=== PATIENT | male | born 1960 | race American Indian/Alaskan Native ===

== ENCOUNTER 2017-04-07 10:19 | Emergency (ER) | payer SELFPAY ==
[2017-04-07] MEDS ORDERED: Ketorolac 30 MG/ML SDV IVPUSH ONE (10:34)
[2017-04-07] MEDS ORDERED: LORazepam 2 MG/ML Syringe IVPUSH ONE (10:34)
[2017-04-07] MEDS ORDERED: Sodium Chloride 0.9% 10 ML Syringe FLUSH PRN (10:34)
[2017-04-07 10:56] LABS: CHLORIDE,CL 108 mmol/L (101-111); SODIUM,NA 141 mmol/L (135-145)
[2017-04-07] MEDS ORDERED: Aspirin 81 MG Tab.Chew PO ONE (11:00)
[2017-04-07] MEDS ORDERED: Metoprolol Succinate 25 MG Tab.ER PO ONE (11:00)
[2017-04-07] MEDS ORDERED: Nitroglycerin 0.4 MG Tab.SL SL ONE ×2 (11:02→11:12)
[2017-04-07 11:13] VITALS: BP 138/78
[2017-04-07] MEDS ORDERED: Heparin Sodium/D5W 25,000 UNITS/500 ML BAG IV SCH (11:15)
[2017-04-07] MEDS ORDERED: Heparin Sodium 5,000 Units/ML Vial IVPUSH ONE (11:15)
--- NOTE | 2017-04-07 11:24 | EDM.PDOC ---
{null, ED HPI GENERAL MEDICAL PROBLEM - General Chief Complaint: Chest Pain Stated Complaint: CHEST PAIN, WEAK Time Seen by Provider: 04/07/17 10:30 Source of Information: Reports: Patient History Limitations: Reports: No Limitations - History of Present Illness INITIAL COMMENTS - FREE TEXT/NARRATIVE: patient comes emergency Department today with complaints of chest pain. 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 The pain is sharp shooting stabbing in nature in his chest and is intermittent. The pain comes and goes with a deep breath cough and movement. There are periods of time when he is absolutely chest pain-free and then it quickly comes back. He does complain of some shortness of breath. Denies any nausea vomiting or diaphoresis. Denies any recent trauma to his chest or thorax. Denies any abdominal pain. Denies any hematuria dysuria or urinary frequency. Denies any weakness dizziness lightheadedness fatigue or syncope. He does have a history of hypertension as well as diabetes for which he has not taken his medication over the past week as he has been out of them. He is unable to check his glucose at home as he lost his glucometer. He has never had a heart attack or any coronary events in the past. He does have a history of anxiety and feels quite anxious upon arrival and this is how he typically feels when he is having an anxiety attack. Onset: Today, Sudden Onset Date: 04/07/17 Onset Time: 08:30 Duration: Intermittent, Waxing/Waning Location: Reports: Chest Quality: Reports: Sharp, Stabbing Severity: Moderate Worsens with: Reports: Breathing, Other (COugh), Movement Chest Pain Score (Numeric/FACES): 6 - Related Data Allergies Allergy/AdvReac Type Severity Reaction Status Date / Time No Known Allergies Allergy Verified 04/07/17 10:34 Home Meds: Home Meds Insulin Detemir [Levemir Flextouch] 20 units SUBCUT DAILY 03/09/16 [History] Lisinopril [Prinivil] 40 mg PO DAILY 03/09/16 [History] Past Medical History HEENT History: Reports: Other (See Below) Other HEENT History: chronic conjunctivitis Cardiovascular History: Reports: Hypertension Respiratory History: Reports: COPD Psychiatric History: Reports: Anxiety Endocrine/Metabolic History: Reports: Diabetes, Type II - Infectious Disease History Infectious Disease History: Reports: Chicken Pox Social & Family History - Tobacco Use Smoking Status *Q: Current Every Day Smoker Years of Tobacco use: 10 Packs/Tins Daily: 0.5 - Recreational Drug Use Recreational Drug Use: No ED ROS GENERAL - Review of Systems Review Of Systems: See Below Constitutional: Reports: No Symptoms HEENT: Reports: No Symptoms Endocrine: Reports: No Symptoms GI/Abdominal: Reports: No Symptoms Skin: Reports: No Symptoms Neurological: Reports: No Symptoms Psychiatric: Reports: Anxiety Hematologic/Lymphatic: Reports: No Symptoms Immunologic: Reports: No Symptoms ED EXAM, GENERAL - Physical Exam Exam: See Below Exam Limited By: No Limitations General Appearance: Alert, WD/WN, Anxious, Mild Distress Ears: Normal External Exam, Normal Canal, Hearing Grossly Normal, Normal TMs Ear Exam: Bilateral Ear: TM normal Nose: Normal Inspection, Normal Mucosa, No Blood Throat/Mouth: Normal Inspection, Normal Lips, Normal Oropharynx Head: Atraumatic, Normocephalic Neck: Normal Inspection, Supple, Non-Tender Respiratory/Chest: Lungs Clear, Normal Breath Sounds, No Accessory Muscle Use, Other (tenderness all over the precordium with even the lightest palpation. No bruising swelling ecchymosis bony deformity or crepitus) Cardiovascular: Normal Peripheral Pulses, Regular Rate, Rhythm, No Edema, No Gallop, No JVD, No Murmur, Tachycardia Peripheral Pulses: 2+: Radial (L), Radial (R), Posterior Tibial (L), Posterior Tibial (R), Dorsalis Pedis (L), Dorsalis Pedis (R) GI/Abdominal: Normal Bowel Sounds, Soft, Non-Tender, No Organomegaly, No Distention, No Abnormal Bruit (Male) Exam: Deferred Rectal (Males) Exam: Deferred Back Exam: Normal Inspection, Full Range of Motion Extremities: Normal Inspection, Normal Range of Motion Neurological: Alert, Oriented, CN II-XII Intact, Normal Cognition Psychiatric: Anxious Skin Exam: Warm, Dry, Intact, Normal Color Lymphatic: No Adenopathy EKG INTERPRETATION EKG Date: 04/07/17 Time: 10:21 Rhythm: other (Sinus tachycardia) Rate (beats/min): 105 Alexander: normal P-wave: present QRS: normal ST-T: normal QT: normal Comparison: no change Course - Vital Signs Last Recorded V/S: Last Vital Signs Temp 36.9 C 04/07/17 10:20 Pulse 95 04/07/17 11:08 Resp 24 H 04/07/17 10:20 BP 138/78 04/07/17 11:13 Pulse Ox 99 04/07/17 10:20 Vital Signs 04/07/17 04/07/17 04/07/17 10:20 11:06 11:08 Temperature [ 36.9 C Temporal] Pulse, 95 Peripheral Pulse, 101 H Peripheral [ Apical] Respiratory 24 H Rate Blood Pressure 122/81 122/81 Blood Pressure 154/87 H [Right Upper Arm] O2 Sat by Pulse 99 Oximetry 04/07/17 11:13 Temperature [ Temporal] Pulse, Peripheral Pulse, Peripheral [ Apical] Respiratory Rate Blood Pressure 138/78 Blood Pressure [Right Upper Arm] O2 Sat by Pulse Oximetry - Orders/Labs/Meds Orders: Active Orders 24 hr Category Date Time Status EKG 12 Lead [EKG Documentation Completion] [RC] URGENT Care 04/07/17 10:33 Active EKG Documentation Completion [RC] STAT Care 04/07/17 10:34 Inactive Peripheral IV Care [RC] . DIRECTED Care 04/07/17 10:34 Active Chest 2V [CR] Urgent Exams 04/07/17 10:33 Taken Heparin Sodium/D5W [Heparin 25,000 Units in D5W 500 ML] Med 04/07/17 11:15 Active 25,000 units in 500 ml IV TITRATE Nitroglycerin/D5W [Nitroglycerin 25 MG/D5W 250 ML] Med 04/07/17 11:30 Active 25 mg in 250 ml IV TITRATE Sodium Chloride 0.9% [Saline Flush] Med 04/07/17 10:34 Active 10 ml FLUSH ASDIRECTED PRN Peripheral IV Insertion Adult [OM.PC] Stat Oth 04/07/17 10:33 Ordered Medication Orders Heparin Sodium/Dextrose (Heparin 25,000 Units In D5w 500 Ml) 25,000 units in 500 mls @ 25.8 mls/hr IV TITRATE DUKE PRN Reason: 1,290 UNITS/HR Last Admin: 04/07/17 11:20 Dose: 1,290 units/hr, 25.8 mls/hr Nitroglycerin/Dextrose (Nitroglycerin 25 Mg/D5w 250 Ml) 25 mg in 250 mls @ 6 mls/hr IV TITRATE DUKE; 10 MCG/MIN PRN Reason: Protocol Last Admin: 04/07/17 11:26 Dose: 10 mcg/min, 6 mls/hr Sodium Chloride (Saline Flush) 10 ml FLUSH ASDIRECTED PRN PRN Reason: Keep Vein Open Last Admin: 04/07/17 10:50 Dose: 10 ml Labs: Laboratory Tests 04/07/17 04/07/17 04/07/17 Range/Units 10:25 10:30 10:30 WBC 6.3 (5.0-10.0) 10^3/uL RBC 3.05 L (4.6-6.2) 10^6/uL Hgb 8.4 L (14.0-18.0) g/dL Hct 26.6 L (40.0-54.0) % MCV 87.2 (80-100) fL MCH 27.5 (27.0-34.0) pg MCHC 31.6 L (33.0-35.0) g/dL Plt Count 276 (150-450) 10^3/uL Neut % (Auto) 60.1 (42.2-75.2) % Lymph % (Auto) 24.3 (20.5-50.1) % [place] % (Auto) 12.1 H (2-8) % Eos % (Auto) 3.3 H (1.0-3.0) % Baso % (Auto) 0.2 (0.0-1.0) % Sodium 141 (135-145) mmol/L Potassium 3.6 (3.6-5.0) mmol/L Chloride 108 (101-111) mmol/L Carbon Dioxide 26.0 (21.0-31.0) mmol/L Anion Gap 10.6 BUN 16 (7-18) mg/dL Creatinine 0.8 (0.6-1.3) mg/dL Est Cr Clr Drug Dosing 102.13 mL/min Estimated GFR (MDRD) > 60 BUN/Creatinine Ratio 20.00 Glucose 101 (74-105) mg/dL POC Glucose 93 (70-105) mg/dl Calcium 8.4 (8.4-10.2) mg/dl Total Bilirubin 0.4 (0.2-1.0) mg/dL AST 39 (10-42) IU/L ALT 25 (10-60) IU/L Alkaline Phosphatase 101 (42-121) IU/L Troponin I 0.06 H* (0.00-0.02) ng/ml Total Protein 6.6 L (6.7-8.2) g/dl Albumin 3.4 (3.2-5.5) g/dl Globulin 3.2 Albumin/Globulin Ratio 1.06 Meds: Medications Generic Name Dose Route Start Last Admin Trade Name Freq PRN Reason Stop Dose Admin Heparin Sodium/Dextrose 25,000 units in 500 mls @ 25.8 mls/hr 04/07/17 11:15 04/07/17 11:20 Heparin 25,000 Units In D5w 500 Ml IV 1,290 units/hr TITRATE DUKE 25.8 mls/hr 1,290 UNITS/HR Administration Nitroglycerin/Dextrose 25 mg in 250 mls @ 6 mls/hr 04/07/17 11:30 04/07/17 11 :26 Nitroglycerin 25 Mg/D5w 250 Ml IV 10 mcg/min TITRATE DUKE 6 mls/hr Protocol Administration 10 MCG/MIN Sodium Chloride 10 ml 04/07/17 10:34 04/07/17 10:50 Saline Flush FLUSH 10 ml ASDIRECTED PRN Administration Keep Vein Open Discontinued Medications Generic Name Dose Route Start Last Admin Trade Name Ashishq PRN Reason Stop Dose Admin Aspirin 324 mg 04/07/17 11:00 04/07/17 11:06 Aspirin PO 04/07/17 11:01 324 mg ONETIME ONE Administration Heparin Sodium (Porcine) 5,000 units 04/07/17 11:15 04/07/17 11:19 Heparin Sodium IVPUSH 04/07/17 11:16 5,000 units ONETIME ONE Administration Ketorolac Tromethamine 30 mg 04/07/17 10:34 04/07/17 10:50 Toradol IVPUSH 04/07/17 10:35 30 mg ONETIME ONE Administration Lorazepam 1 mg 04/07/17 10:34 04/07/17 10:51 Ativan IVPUSH 04/07/17 10:35 1 mg ONETIME ONE Administration Metoprolol Succinate 25 mg 04/07/17 11:00 04/07/17 11:08 Toprol Xl PO 04/07/17 11:01 25 mg ONETIME ONE Administration Nitroglycerin 0.4 mg 04/07/17 11:02 04/07/17 11:06 Nitrostat SL 04/07/17 11:03 0.4 mg ONETIME ONE Administration Nitroglycerin 0.4 mg 04/07/17 11:12 04/07/17 11:13 Nitrostat SL 04/07/17 11:13 0.4 mg ONETIME ONE Administration - Radiology Interpretation Free Text/Narrative:: No acute findings per radiology. - Re-Assessments/Exams Free Text/Narrative Re-Assessment/Exam: 04/07/17 Arrival. Ketorolac 30mg IVP Ativan 1mg IVP following the above medications the patient's pain was unchanged. He was much less anxious although. Eventually the laboratory results returned and he had a mildly elevated troponin. He still had chest pain approximately 04/28. Aspirin 324 chewable or liquid. Metoprolol succinate 25 mg by mouth. Nitroglycerin tablet sublingual x2 with improvement of chest pain. I called and spoke with Dr. Mcneal at [facility] in [place]. HPI ER course and findings were relayed to him. He accepted the patient in transfer and agreed to Heparin gtt initiation. Nitro gtt started as well as SL nitro tabs helped with CP. I explained the findings of an NSTEMI to the patient as well as his .we will start heparin and nitroglycerin and transferred to [place] for further cardiac workup and evaluation. He was understanding of this and his questions are answered. Departure - Departure Time of Disposition: 11:30 Disposition: DC/Tfer to Acute Hospital 02 Reason for Transfer *Q: Other (NSTEMI) Clinical Impression: NSTEMI (non-ST elevated myocardial infarction) Forms: ED Department Discharge ED Communication - ED Communication Date/Time Date: 04/07/17 (HPI ER COURSE relayed to him and the findings of an NSTEMI. Orders for heparin to start as well received. Accepted the patient to [facility]. ) Time Called: 11:08 - My Orders Last 24 Hours: My Active Orders 04/07/17 10:33 EKG 12 Lead [EKG Documentation Completion] [RC] URGENT Chest 2V [CR] Urgent Peripheral IV Insertion Adult [OM.PC] Stat 04/07/17 10:34 EKG Documentation Completion [RC] STAT Peripheral IV Care [RC] . DIRECTED Sodium Chloride 0.9% [Saline Flush] 10 ml FLUSH ASDIRECTED PRN 04/07/17 11:15 Heparin Sodium/D5W [Heparin 25,000 Units in D5W 500 ML] 25,000 units in 500 ml IV TITRATE 04/07/17 11:30 Nitroglycerin/D5W [Nitroglycerin 25 MG/D5W 250 ML] 25 mg in 250 ml IV TITRATE - Assessment/Plan Last 24 Hours: My Active Orders 04/07/17 10:33 EKG 12 Lead [EKG Documentation Completion] [RC] URGENT Chest 2V [CR] Urgent Peripheral IV Insertion Adult [OM.PC] Stat 04/07/17 10:34 EKG Documentation Completion [RC] STAT Peripheral IV Care [RC] . DIRECTED Sodium Chloride 0.9% [Saline Flush] 10 ml FLUSH ASDIRECTED PRN 04/07/17 11:15 Heparin Sodium/D5W [Heparin 25,000 Units in D5W 500 ML] 25,000 units in 500 ml IV TITRATE 04/07/17 11:30 Nitroglycerin/D5W [Nitroglycerin 25 MG/D5W 250 ML] 25 mg in 250 ml IV TITRATE Assessment:: NSTEMI HX HTN HX DM Plan: Heparin gtt Nitro gtt. ALS ambulance to [facility] under the care of Dr. Mcneal. }
[2017-04-07] MEDS ORDERED: Nitroglycerin/D5W 25 MG/250 ML BOTTLE IV SCH (11:30)
--- NOTE | 2017-04-10 10:57 | EKG ---
{null, 04/07/2017 - CHRISTIAN CORDON - 12-lead EKG shows normal sinus rhythm with sinus tachycardia. No significant ST elevation or ST depression noted on this 12-lead EKG. Nonspecific ST-T wave changes noted on the lateral leads, mainly V2, V3, and V4. [facility] /[id number] }
== END 2017-04-07 12:00 ==
LOC: DL.ED 10:19
DX: I21.4 Non-ST elevation (NSTEMI) myocardial infarction (principal); I10 Essential (primary) hypertension; J44.9 Chronic obstructive pulmonary disease, unspecified; F41.9 Anxiety disorder, unspecified; E11.9 Type 2 diabetes mellitus without complications; F17.210 Nicotine dependence, cigarettes, uncomplicated; Z79.4 Long term (current) use of insulin; Z79.899 Other long term (current) drug therapy
CPT/HCPCS: 36415; 71020; 80053; 82962; 84484; 85025; 93005; 96365; 96368; 96375; 99285; A9270; J1644; J1885; J2060; J7050; 93010

== ENCOUNTER 2017-07-08 11:17 | Emergency (ER) | payer SELFPAY ==
[2017-07-08 11:34] VITALS: BP 172/91
--- NOTE | 2017-07-08 12:02 | EDM.PDOC ---
ED HPI GENERAL MEDICAL PROBLEM - General Chief Complaint: Respiratory Problem Stated Complaint: [id number] SOB Time Seen by Provider: 07/08/17 11:58 Source of Information: Reports: Patient History Limitations: Reports: No Limitations - History of Present Illness INITIAL COMMENTS - FREE TEXT/NARRATIVE: 56 yo [place] Male c/o SOB w/ Productive greenish cough X 7 Days Onset Date: 07/01/17 Onset Time: 12:00 Duration: Day(s): Location: Reports: Chest Severity: Moderate Improves with: Reports: None Worsens with: Reports: Breathing Associated Symptoms: Reports: cough w sputum, Fever/Chills - Related Data Allergies Allergy/AdvReac Type Severity Reaction Status Date / Time envirmental Allergy Shortness Uncoded 07/08/17 11:35 of Breath Home Meds: Home Meds Insulin Detemir [Levemir Flextouch] 20 units SUBCUT DAILY 03/09/16 [History] Lisinopril [Prinivil] 40 mg PO DAILY 03/09/16 [History] Past Medical History HEENT History: Reports: Impaired Vision, Other (See Below) Other HEENT History: chronic conjunctivitis, wears glasses Cardiovascular History: Reports: Hypertension Respiratory History: Reports: COPD Gastrointestinal History: Reports: None Genitourinary History: Reports: None Musculoskeletal History: Reports: None Neurological History: Reports: None Psychiatric History: Reports: Anxiety Endocrine/Metabolic History: Reports: Diabetes, Type II Hematologic History: Reports: None Immunologic History: Reports: None Oncologic (Cancer) History: Reports: None Dermatologic History: Reports: None - Infectious Disease History Infectious Disease History: Reports: Chicken Pox - Past Surgical History Head Surgeries/Procedures: Reports: None Social & Family History - Tobacco Use Smoking Status *Q: Former Smoker Years of Tobacco use: 38 Packs/Tins Daily: 1 Used Tobacco, but Quit: Yes Month Tobacco Last Used: february Second Hand Smoke Exposure: No - Caffeine Use Caffeine Use: Reports: Coffee - Recreational Drug Use Recreational Drug Use: No ED ROS GENERAL - Review of Systems Review Of Systems: See Below Constitutional: Reports: No Symptoms HEENT: Reports: No Symptoms Respiratory: Reports: Shortness of Breath, Cough Cardiovascular: Reports: No Symptoms Endocrine: Reports: No Symptoms GI/Abdominal: Reports: No Symptoms : Reports: No Symptoms Musculoskeletal: Reports: No Symptoms Skin: Reports: No Symptoms Neurological: Reports: No Symptoms Psychiatric: Reports: No Symptoms Hematologic/Lymphatic: Reports: No Symptoms Immunologic: Reports: No Symptoms ED EXAM, GENERAL - Physical Exam Exam: See Below Exam Limited By: No Limitations General Appearance: Alert, WD/WN Eye Exam: Bilateral Eye: EOMI, PERRL Ears: Normal External Exam Nose: Normal Inspection Throat/Mouth: Normal Inspection Head: Atraumatic Neck: Normal Inspection Respiratory/Chest: No Respiratory Distress, No Accessory Muscle Use, Chest Non- Tender, Rhonchi, Wheezing Cardiovascular: Normal Peripheral Pulses, Regular Rate, Rhythm GI/Abdominal: Normal Bowel Sounds Back Exam: Normal Inspection Extremities: Normal Inspection Neurological: Alert, Oriented, CN II-XII Intact Psychiatric: Normal Affect, Normal Mood Skin Exam: Warm, Dry, Intact Lymphatic: No Adenopathy Course - Vital Signs Last Recorded V/S: Last Vital Signs Temp 37.0 C 07/08/17 11:25 Pulse 98 07/08/17 12:14 Resp 20 07/08/17 11:25 BP 172/91 H 07/08/17 11:25 Pulse Ox 100 07/08/17 11:25 - Orders/Labs/Meds Orders: Active Orders 24 hr Category Date Time Status RT Aerosol Therapy [RC] ASDIRECTED Care 07/08/17 12:09 Active Chest 2V [CR] Urgent Exams 07/08/17 11:59 Taken Labs: Laboratory Tests 07/08/17 Range/Units 12:05 WBC 5.5 (5.0-10.0) 10^3/uL RBC 5.11 (4.6-6.2) 10^6/uL Hgb 10.3 L (14.0-18.0) g/dL Hct 35.3 L (40.0-54.0) % MCV 69.1 L (80-100) fL MCH 20.2 L (27.0-34.0) pg MCHC 29.2 L (33.0-35.0) g/dL Plt Count 234 (150-450) 10^3/uL Neut % (Auto) 52.9 (42.2-75.2) % Lymph % (Auto) 29.2 (20.5-50.1) % [place] % (Auto) 9.5 H (2-8) % Eos % (Auto) 7.3 H (1.0-3.0) % Baso % (Auto) 1.1 H (0.0-1.0) % Meds: Medications Discontinued Medications Generic Name Dose Route Start Last Admin Trade Name Carole PRN Reason Stop Dose Admin Albuterol/Ipratropium 3 ml 07/08/17 12:09 07/08/17 12:14 Duoneb 3.0-0.5 Mg/3 Ml NEB 07/08/17 12:10 3 ml ONETIME ONE Administration Departure - Departure Time of Disposition: 12:29 Disposition: Home, Self-Care 01 Condition: Good Clinical Impression: COPD exacerbation - Discharge Information Forms: ED Department Discharge Additional Instructions: Rest Increase intake of Fluids ( Water / Juice) Take the Medications as prescribed: MEDROL DOSE LIZETH 4MG # 1 COMBIVENT MDI 2 PUFFS Q 4 HRS NEEDED # 1 F/U w/ PCP - My Orders Last 24 Hours: My Active Orders 07/08/17 11:59 Chest 2V [CR] Urgent 07/08/17 12:09 RT Aerosol Therapy [RC] ASDIRECTED - Assessment/Plan Last 24 Hours: My Active Orders 07/08/17 11:59 Chest 2V [CR] Urgent 07/08/17 12:09 RT Aerosol Therapy [RC] ASDIRECTED
[2017-07-08] MEDS ORDERED: Albuterol/Ipratropium 3.0-0.5 MG/3 ML Neb Soln NEB ONE (12:09)
== END 2017-07-08 12:52 | disposition home or self-care (01) ==
LOC: DL.ED 11:17
DX: J44.1 Chronic obstructive pulmonary disease with (acute) exacerbation (principal); I10 Essential (primary) hypertension; F41.9 Anxiety disorder, unspecified; E11.9 Type 2 diabetes mellitus without complications; Z79.4 Long term (current) use of insulin; Z87.891 Personal history of nicotine dependence
CPT/HCPCS: 36415; 71020; 85025; 94640; 99284; 99285

== ENCOUNTER 2017-10-28 14:41 | Emergency (ER) | payer BC ==
[2017-10-28] MEDS ORDERED: Albuterol/Ipratropium 3.0-0.5 MG/3 ML Neb Soln NEB ONE (14:44)
[2017-10-28] MEDS ORDERED: Sodium Chloride 0.9% 10 ML Syringe FLUSH PRN (14:44)
[2017-10-28] MEDS ORDERED: methylPREDNISolone Sodium Succinate 125 MG/2 ML SDV IVPUSH ONE (14:46)
[2017-10-28 14:50] VITALS: BP 156/85
--- NOTE | 2017-10-28 14:55 | EDM.PDOC ---
ED HPI GENERAL MEDICAL PROBLEM - General Chief Complaint: Respiratory Problem Stated Complaint: SOB Time Seen by Provider: 10/28/17 14:45 Source of Information: Reports: Patient, RN, RN Notes Reviewed History Limitations: Reports: Respiratory Distress - History of Present Illness INITIAL COMMENTS - FREE TEXT/NARRATIVE: Pt presents to the ER with c/o SOB. He states he was at work at [employer] and suddenly became SOB. He states he has COPD. He states this happens from time to time when he gets up and moving around but he uses his nebulizer and it improves. Patient denies fever or chills or chest pain, N/V/D. He states he has had a cough recently. He reports coughing sputum up that tastes like iron. Pt states he had an MD approximately 7 months ago. Onset: Today, Sudden - Related Data Allergies Allergy/AdvReac Type Severity Reaction Status Date / Time envirmental Allergy Shortness Uncoded 10/28/17 14:44 of Breath Home Meds: Home Meds Insulin Detemir [Levemir Flextouch] 20 units SUBCUT DAILY 03/09/16 [History] Lisinopril [Prinivil] 40 mg PO DAILY 03/09/16 [History] Past Medical History HEENT History: Reports: Impaired Vision, Other (See Below) Other HEENT History: chronic conjunctivitis, wears glasses Cardiovascular History: Reports: Hypertension Respiratory History: Reports: COPD Gastrointestinal History: Reports: None Genitourinary History: Reports: None Musculoskeletal History: Reports: None Neurological History: Reports: None Psychiatric History: Reports: Anxiety Endocrine/Metabolic History: Reports: Diabetes, Type II Hematologic History: Reports: None Immunologic History: Reports: None Oncologic (Cancer) History: Reports: None Dermatologic History: Reports: None - Infectious Disease History Infectious Disease History: Reports: Chicken Pox - Past Surgical History Head Surgeries/Procedures: Reports: None Social & Family History - Tobacco Use Smoking Status *Q: Former Smoker Years of Tobacco use: 38 Packs/Tins Daily: 1 Used Tobacco, but Quit: Yes Month Tobacco Last Used: unknown Second Hand Smoke Exposure: No - Caffeine Use Caffeine Use: Reports: Coffee - Recreational Drug Use Recreational Drug Use: No ED ROS GENERAL - Review of Systems Review Of Systems: ROS reveals no pertinent complaints other than HPI. ED EXAM, GENERAL - Physical Exam Exam: See Below Exam Limited By: Respiratory Distress General Appearance: Alert, WD/WN, Moderate Distress Eye Exam: Bilateral Eye: EOMI, Normal Inspection Ears: Normal External Exam, Hearing Grossly Normal Nose: Normal Inspection Throat/Mouth: Normal Inspection, Normal Voice, No Airway Compromise Head: Atraumatic, Normocephalic Neck: Normal Inspection, Supple, Non-Tender, Full Range of Motion Respiratory/Chest: Respiratory Distress, Decreased Breath Sounds, Wheezing Cardiovascular: Normal Peripheral Pulses, Regular Rate, Rhythm, No Murmur, No Rub Peripheral Pulses: 2+: Radial (L), Radial (R) GI/Abdominal: Normal Bowel Sounds, Soft, Non-Tender, No Distention (Male) Exam: Deferred Rectal (Males) Exam: Deferred Back Exam: Normal Inspection, Full Range of Motion Extremities: Normal Inspection, Normal Range of Motion, Non-Tender, No Pedal Edema, Normal Capillary Refill Neurological: Alert, Oriented, Normal Cognition, No Motor/Sensory Deficits Psychiatric: Normal Mood, Anxious Skin Exam: Warm, Dry, Intact, Normal Color, No Rash Lymphatic: No Adenopathy EKG INTERPRETATION EKG Date: 10/28/17 Time: 14:52 Rhythm: NSR Rate (Beats/Min): 95 Farson: Normal P-Wave: Present QRS: Normal ST-T: Normal QT: Normal Comparison: No Change Course - Vital Signs Last Recorded V/S: Last Vital Signs Temp 97.8 F 10/28/17 14:47 Pulse 92 10/28/17 15:00 Resp 24 H 10/28/17 15:00 BP 156/85 H 10/28/17 14:47 Pulse Ox 94 L 10/28/17 15:00 - Orders/Labs/Meds Orders: Active Orders 24 hr Category Date Time Status EKG Documentation Completion [RC] STAT Care 10/28/17 14:44 Active Oxygen Therapy, ED [RC] ASDIRECTED Care 10/28/17 14:44 Active POC Glucose [Blood Glucose Check, Bedside] [RC] ONETIME Care 10/28/17 15:58 Ordered Peripheral IV Care [RC] . DIRECTED Care 10/28/17 14:45 Active RT Aerosol Therapy [RC] ASDIRECTED Care 10/28/17 14:44 Active Chest 1V Frontal [CR] Stat Exams 10/28/17 15:05 Taken CULTURE BLOOD [BC] Stat Lab 10/28/17 14:55 Received CULTURE BLOOD [BC] Stat Lab 10/28/17 15:02 Received Sodium Chloride 0.9% [Saline Flush] Med 10/28/17 14:44 Active 10 ml FLUSH ASDIRECTED PRN Blood Culture x2 Reflex Set [OM.PC] Stat Oth 10/28/17 14:44 Ordered Peripheral IV Insertion Adult [OM.PC] Stat Oth 10/28/17 14:44 Ordered Medication Orders Sodium Chloride (Saline Flush) 10 ml FLUSH ASDIRECTED PRN PRN Reason: Keep Vein Open Last Admin: 10/28/17 14:57 Dose: 10 ml Labs: Laboratory Tests 10/28/17 10/28/17 10/28/17 Range/Units 14:55 14:55 14:55 WBC 4.4 L (5.0-10.0) 10^3/uL RBC 5.27 (4.6-6.2) 10^6/uL Hgb 10.7 L (14.0-18.0) g/dL Hct 35.9 L (40.0-54.0) % MCV 68.1 L (80-100) fL MCH 20.3 L (27.0-34.0) pg MCHC 29.8 L (33.0-35.0) g/dL Plt Count 210 (150-450) 10^3/uL Neut % (Auto) 50.3 (42.2-75.2) % Lymph % (Auto) 28.3 (20.5-50.1) % Tyler % (Auto) 15.4 H (2-8) % Eos % (Auto) 5.5 H (1.0-3.0) % Baso % (Auto) 0.5 (0.0-1.0) % D-Dimer, Quantitative (0-400) ng/mL Sodium 137 (135-145) mmol/L Potassium 4.2 (3.6-5.0) mmol/L Chloride 104 (101-111) mmol/L Carbon Dioxide 22.0 (21.0-31.0) mmol/L Anion Gap 15.2 BUN 11 (7-18) mg/dL Creatinine 0.9 (0.6-1.3) mg/dL Est Cr Clr Drug Dosing 89.72 mL/min Estimated GFR (MDRD) > 60 BUN/Creatinine Ratio 12.22 Glucose 387 H (74-105) mg/dL POC Glucose (70-105) mg/dl Lactic Acid 2.8 H (0.5-2.2) mmol/L Calcium 8.7 (8.4-10.2) mg/dl Magnesium 1.9 (1.8-2.5) mg/dL Total Bilirubin 0.5 (0.2-1.0) mg/dL AST 163 H (10-42) IU/L ALT 136 H (10-60) IU/L Alkaline Phosphatase 96 (42-121) IU/L Troponin I < 0.02 (0.00-0.02) ng/ml Total Protein 7.6 (6.7-8.2) g/dl Albumin 3.9 (3.2-5.5) g/dl Globulin 3.7 Albumin/Globulin Ratio 1.05 Urine Color (YELLOW) Urine Appearance (CLEAR) Urine pH (5.0-9.0) Ur Specific Continental (1.005-1.030) Urine Protein (NEGATIVE) Urine Glucose (UA) (NEGATIVE) Urine Ketones (NEGATIVE) Urine Occult Blood (NEGATIVE) Urine Nitrite (NEGATIVE) Urine Bilirubin (NEGATIVE) Urine Urobilinogen (0.2-1.0) mg/dL Ur Leukocyte Esterase (NEGATIVE) Urine RBC /HPF Urine WBC (0-5/HPF) /HPF Ur Epithelial Cells /HPF Urine Bacteria (0-FEW/HPF) /HPF Urine Opiates Screen (NEGATIVE) Ur Oxycodone Screen (NEGATIVE) Urine Methadone Screen (NEGATIVE) Ur Barbiturates Screen (NEGATIVE) U Tricyclic Antidepress (NEGATIVE) Ur Phencyclidine Scrn (NEGATIVE) Ur Amphetamine Screen (NEGATIVE) U Methamphetamines Scrn (NEGATIVE) Urine MDMA Screen (NEGATIVE) U Benzodiazepines Scrn (NEGATIVE) Urine Cocaine Screen (NEGATIVE) U Marijuana (THC) Screen (NEGATIVE) Ethyl Alcohol 18 mg/dL 10/28/17 10/28/17 10/28/17 Range/Units 14:55 15:05 15:05 WBC (5.0-10.0) 10^3/uL RBC (4.6-6.2) 10^6/uL Hgb (14.0-18.0) g/dL Hct (40.0-54.0) % MCV (80-100) fL MCH (27.0-34.0) pg MCHC (33.0-35.0) g/dL Plt Count (150-450) 10^3/uL Neut % (Auto) (42.2-75.2) % Lymph % (Auto) (20.5-50.1) % Tyler % (Auto) (2-8) % Eos % (Auto) (1.0-3.0) % Baso % (Auto) (0.0-1.0) % D-Dimer, Quantitative < 100 (0-400) ng/mL Sodium (135-145) mmol/L Potassium (3.6-5.0) mmol/L Chloride (101-111) mmol/L Carbon Dioxide (21.0-31.0) mmol/L Anion Gap BUN (7-18) mg/dL Creatinine (0.6-1.3) mg/dL Est Cr Clr Drug Dosing mL/min Estimated GFR (MDRD) BUN/Creatinine Ratio Glucose (74-105) mg/dL POC Glucose (70-105) mg/dl Lactic Acid (0.5-2.2) mmol/L Calcium (8.4-10.2) mg/dl Magnesium (1.8-2.5) mg/dL Total Bilirubin (0.2-1.0) mg/dL AST (10-42) IU/L ALT (10-60) IU/L Alkaline Phosphatase (42-121) IU/L Troponin I (0.00-0.02) ng/ml Total Protein (6.7-8.2) g/dl Albumin (3.2-5.5) g/dl Globulin Albumin/Globulin Ratio Urine Color Yellow (YELLOW) Urine Appearance Clear (CLEAR) Urine pH 6.0 (5.0-9.0) Ur Specific Continental 1.010 (1.005-1.030) Urine Protein Negative (NEGATIVE) Urine Glucose (UA) 500 H (NEGATIVE) Urine Ketones Negative (NEGATIVE) Urine Occult Blood Negative (NEGATIVE) Urine Nitrite Negative (NEGATIVE) Urine Bilirubin Negative (NEGATIVE) Urine Urobilinogen 1.0 (0.2-1.0) mg/dL Ur Leukocyte Esterase Negative (NEGATIVE) Urine RBC 0-5 /HPF Urine WBC 0-5 (0-5/HPF) /HPF Ur Epithelial Cells Rare /HPF Urine Bacteria Rare (0-FEW/HPF) /HPF Urine Opiates Screen Negative (NEGATIVE) Ur Oxycodone Screen Negative (NEGATIVE) Urine Methadone Screen Negative (NEGATIVE) Ur Barbiturates Screen Negative (NEGATIVE) U Tricyclic Antidepress Negative (NEGATIVE) Ur Phencyclidine Scrn Negative (NEGATIVE) Ur Amphetamine Screen Negative (NEGATIVE) U Methamphetamines Scrn Negative (NEGATIVE) Urine MDMA Screen Negative (NEGATIVE) U Benzodiazepines Scrn Negative (NEGATIVE) Urine Cocaine Screen Negative (NEGATIVE) U Marijuana (THC) Screen Negative (NEGATIVE) Ethyl Alcohol mg/dL 10/28/17 Range/Units 15:59 WBC (5.0-10.0) 10^3/uL RBC (4.6-6.2) 10^6/uL Hgb (14.0-18.0) g/dL Hct (40.0-54.0) % MCV (80-100) fL MCH (27.0-34.0) pg MCHC (33.0-35.0) g/dL Plt Count (150-450) 10^3/uL Neut % (Auto) (42.2-75.2) % Lymph % (Auto) (20.5-50.1) % Tyler % (Auto) (2-8) % Eos % (Auto) (1.0-3.0) % Baso % (Auto) (0.0-1.0) % D-Dimer, Quantitative (0-400) ng/mL Sodium (135-145) mmol/L Potassium (3.6-5.0) mmol/L Chloride (101-111) mmol/L Carbon Dioxide (21.0-31.0) mmol/L Anion Gap BUN (7-18) mg/dL Creatinine (0.6-1.3) mg/dL Est Cr Clr Drug Dosing mL/min Estimated GFR (MDRD) BUN/Creatinine Ratio Glucose (74-105) mg/dL POC Glucose 361 H (70-105) mg/dl Lactic Acid (0.5-2.2) mmol/L Calcium (8.4-10.2) mg/dl Magnesium (1.8-2.5) mg/dL Total Bilirubin (0.2-1.0) mg/dL AST (10-42) IU/L ALT (10-60) IU/L Alkaline Phosphatase (42-121) IU/L Troponin I (0.00-0.02) ng/ml Total Protein (6.7-8.2) g/dl Albumin (3.2-5.5) g/dl Globulin Albumin/Globulin Ratio Urine Color (YELLOW) Urine Appearance (CLEAR) Urine pH (5.0-9.0) Ur Specific Continental (1.005-1.030) Urine Protein (NEGATIVE) Urine Glucose (UA) (NEGATIVE) Urine Ketones (NEGATIVE) Urine Occult Blood (NEGATIVE) Urine Nitrite (NEGATIVE) Urine Bilirubin (NEGATIVE) Urine Urobilinogen (0.2-1.0) mg/dL Ur Leukocyte Esterase (NEGATIVE) Urine RBC /HPF Urine WBC (0-5/HPF) /HPF Ur Epithelial Cells /HPF Urine Bacteria (0-FEW/HPF) /HPF Urine Opiates Screen (NEGATIVE) Ur Oxycodone Screen (NEGATIVE) Urine Methadone Screen (NEGATIVE) Ur Barbiturates Screen (NEGATIVE) U Tricyclic Antidepress (NEGATIVE) Ur Phencyclidine Scrn (NEGATIVE) Ur Amphetamine Screen (NEGATIVE) U Methamphetamines Scrn (NEGATIVE) Urine MDMA Screen (NEGATIVE) U Benzodiazepines Scrn (NEGATIVE) Urine Cocaine Screen (NEGATIVE) U Marijuana (THC) Screen (NEGATIVE) Ethyl Alcohol mg/dL Meds: Medications Generic Name Dose Route Start Last Admin Trade Name Freq PRN Reason Stop Dose Admin Sodium Chloride 10 ml 10/28/17 14:44 10/28/17 14:57 Saline Flush FLUSH 10 ml ASDIRECTED PRN Administration Keep Vein Open Discontinued Medications Generic Name Dose Route Start Last Admin Trade Name Freq PRN Reason Stop Dose Admin Albuterol/Ipratropium 3 ml 10/28/17 14:44 10/28/17 14:46 Duoneb 3.0-0.5 Mg/3 Ml NEB 10/28/17 14:45 3 ml ONETIME ONE Administration Methylprednisolone Sodium Succinate 125 mg 10/28/17 14:46 10/28/17 14:55 Solu-Medrol IVPUSH 10/28/17 14:47 125 mg ONETIME ONE Administration Departure - Departure Time of Disposition: 16:02 Disposition: Home, Self-Care 01 Condition: Fair Clinical Impression: COPD exacerbation - Discharge Information Instructions: Shortness of Breath, [id number], Chronic Obstructive Pulmonary Disease Exacerbation, [id number] Forms: ED Department Discharge Additional Instructions: RX: Albuterol inhaler, Prednisone Follow up on Sunday with your primary care facility Check blood sugars at least twice daily if not more while taking the prednisone. Drink plenty of water. - My Orders Last 24 Hours: My Active Orders 10/28/17 14:44 EKG Documentation Completion [RC] STAT Oxygen Therapy, ED [RC] ASDIRECTED RT Aerosol Therapy [RC] ASDIRECTED Sodium Chloride 0.9% [Saline Flush] 10 ml FLUSH ASDIRECTED PRN Blood Culture x2 Reflex Set [OM.PC] Stat Peripheral IV Insertion Adult [OM.PC] Stat 10/28/17 14:45 Peripheral IV Care [RC] . DIRECTED 10/28/17 14:55 CULTURE BLOOD [BC] Stat 10/28/17 15:02 CULTURE BLOOD [BC] Stat 10/28/17 15:05 Chest 1V Frontal [CR] Stat 10/28/17 15:58 POC Glucose [Blood Glucose Check, Bedside] [RC] ONETIME - Assessment/Plan Last 24 Hours: My Active Orders 10/28/17 14:44 EKG Documentation Completion [RC] STAT Oxygen Therapy, ED [RC] ASDIRECTED RT Aerosol Therapy [RC] ASDIRECTED Sodium Chloride 0.9% [Saline Flush] 10 ml FLUSH ASDIRECTED PRN Blood Culture x2 Reflex Set [OM.PC] Stat Peripheral IV Insertion Adult [OM.PC] Stat 10/28/17 14:45 Peripheral IV Care [RC] . DIRECTED 10/28/17 14:55 CULTURE BLOOD [BC] Stat 10/28/17 15:02 CULTURE BLOOD [BC] Stat 10/28/17 15:05 Chest 1V Frontal [CR] Stat 10/28/17 15:58 POC Glucose [Blood Glucose Check, Bedside] [RC] ONETIME
[2017-10-28 15:29] LABS: CHLORIDE,CL 104 mmol/L (101-111); SODIUM,NA 137 mmol/L (135-145)
--- NOTE | 2017-10-30 12:27 | EKG ---
10/28/2017 - CHRISTIAN CORDON - A 12-lead EKG shows normal sinus rhythm with heart rate of 95. No significant ST elevation or ST depression noted on this 12-lead EKG, slightly tachycardic, nonspecific ST-T wave changes noted on lead V2, V3 with slightly tall T-waves and also nonspecific ST changes are noted on lead 2 and AVF. [facility] /[id number]
== END 2017-10-28 16:07 | disposition home or self-care (01) ==
LOC: DL.ED 14:41
DX: J44.1 Chronic obstructive pulmonary disease with (acute) exacerbation (principal); I10 Essential (primary) hypertension; E11.9 Type 2 diabetes mellitus without complications; Z79.899 Other long term (current) drug therapy; Z87.891 Personal history of nicotine dependence
CPT/HCPCS: 36415; 71010; 80053; 80305; 81001; 82962; 83605; 83735; 84484; 85025; 85379; 87040; 93005; 93010; 94640; 96374; 99285; G0480; J2930; J7050

== ENCOUNTER 2018-01-15 15:04 | Emergency (ER) | payer BC, OTHER ==
[2018-01-15 15:08] VITALS: BP 146/91
[2018-01-15] MEDS ORDERED: Sodium Chloride 0.9% 1,000 ML IV ONE (15:58)
[2018-01-15 16:01] LABS: CHLORIDE,CL 98 mmol/L (101-111); SODIUM,NA 132 mmol/L (135-145)
--- NOTE | 2018-01-15 16:51 | EDM.PDOC ---
Scribed by Genesis Navarrete 01/15/18 [id number] for Estuardo Paredes PA ED HPI GENERAL MEDICAL PROBLEM - General Chief Complaint: Diabetic Complaint Stated Complaint: BY AMBULANCE,DIABETES Time Seen by Provider: 01/15/18 15:45 Source of Information: Reports: Patient, RN, RN Notes Reviewed History Limitations: Reports: No Limitations - History of Present Illness INITIAL COMMENTS - FREE TEXT/NARRATIVE: Patient presented to ER with body tingling which started at noon. He has black dots in his vision. He has had cough and vomiting for 2 days. Diarrhea has been intermittent for 2 days. He has had a sore throat x2 days. He has acid reflux disease and has a bad taste in his mouth. He takes Metformin, hypertensive meds and vitamins as directed. Duration: Getting Worse Location: Reports: Generalized Quality: Reports: Ache Severity: Moderate Improves with: Reports: None Worsens with: Reports: None Associated Symptoms: Reports: No Other Symptoms - Related Data Allergies Allergy/AdvReac Type Severity Reaction Status Date / Time envirmental Allergy Shortness Uncoded 01/15/18 15:04 of Breath Home Meds: Home Meds Insulin Detemir [Levemir Flextouch] 20 units SUBCUT DAILY 03/09/16 [History] Lisinopril [Prinivil] 40 mg PO DAILY 03/09/16 [History] Aspirin [Halfprin] 162 mg PO DAILY 01/15/18 [History] Past Medical History HEENT History: Reports: Impaired Vision, Other (See Below) Other HEENT History: chronic conjunctivitis, wears glasses Cardiovascular History: Reports: High Cholesterol, Hypertension Respiratory History: Reports: COPD Gastrointestinal History: Reports: None Genitourinary History: Reports: None Musculoskeletal History: Reports: None Neurological History: Reports: None Psychiatric History: Reports: Anxiety Endocrine/Metabolic History: Reports: Diabetes, Type II Hematologic History: Reports: None Immunologic History: Reports: None Oncologic (Cancer) History: Reports: None Dermatologic History: Reports: None - Infectious Disease History Infectious Disease History: Reports: Chicken Pox - Past Surgical History Head Surgeries/Procedures: Reports: None Social & Family History - Family History Family Medical History: Noncontributory - Tobacco Use Smoking Status *Q: Former Smoker Years of Tobacco use: 38 Packs/Tins Daily: 1 Used Tobacco, but Quit: Yes Month Tobacco Last Used: ? Second Hand Smoke Exposure: No - Caffeine Use Caffeine Use: Reports: Tea - Alcohol Use Days Per Week of Alcohol Use: 3 Number of Drinks Per Day: 12 Total Drinks Per Week: 36 Date of Last Drink: 01/08/18 - Recreational Drug Use Recreational Drug Use: No ED ROS GENERAL - Review of Systems Review Of Systems: ROS reveals no pertinent complaints other than HPI. ED EXAM GENERAL NO PERIP PULSE - Physical Exam Exam: See Below Exam Limited By: No Limitations General Appearance: Other (diaphoretic) Eye Exam: Bilateral Eye: Normal Inspection Ears: Normal External Exam, Normal Canal, Hearing Grossly Normal, Normal TMs Nose: Normal Inspection, Normal Mucosa, No Blood Throat/Mouth: Other (posterior pharynx erythematous, pustules and exudates. ) Head: Atraumatic, Normocephalic Neck: Normal Inspection, Supple, Non-Tender, Full Range of Motion Respiratory/Chest: No Respiratory Distress, Lungs Clear, Normal Breath Sounds, No Accessory Muscle Use, Chest Non-Tender Cardiovascular: Normal Peripheral Pulses, Regular Rate, Rhythm, No Edema, No Gallop, No JVD, No Murmur, No Rub GI/Abdominal: Other (obese) (Male) Exam: Deferred Rectal (Males) Exam: Deferred Back Exam: Normal Inspection, Full Range of Motion, NT Extremities: Normal Inspection, Normal Range of Motion, Non-Tender, Normal Capillary Refill, No Pedal Edema Neurological: Alert, Oriented, CN II-XII Intact, Normal Cognition, Normal Gait, Normal Reflexes, No Motor/Sensory Deficits Psychiatric: Normal Affect, Normal Mood Skin Exam: Diaphoretic Lymphatic: No Adenopathy Course - Vital Signs Last Recorded V/S: Last Vital Signs Temp 36.8 C 01/15/18 15:05 Pulse 86 01/15/18 15:05 Resp 16 01/15/18 15:05 BP 146/91 H 01/15/18 15:05 Pulse Ox 98 01/15/18 15:05 - Orders/Labs/Meds Orders: Active Orders 24 hr Category Date Time Status Blood Glucose Check, Bedside [RC] ONETIME Care 01/15/18 15:08 Active CULTURE STREP A CONFIRMATION [] Stat Lab 01/15/18 16:00 Results STREP SCRN A RAPID W CULT CONF [] Stat Lab 01/15/18 16:00 Results Sodium Chloride 0.9% [Normal Saline] 1,000 ml Med 01/15/18 15:58 Active IV .BOLUS Medication Orders Sodium Chloride (Normal Saline) 1,000 mls @ 999 mls/hr IV .BOLUS ONE Stop: 01/15/18 16:58 Last Admin: 01/15/18 16:03 Dose: 999 mls/hr Labs: Laboratory Tests 01/15/18 01/15/18 01/15/18 Range/Units 15:06 15:10 15:10 WBC (5.0-10.0) 10^3/uL RBC (4.6-6.2) 10^6/uL Hgb (14.0-18.0) g/dL Hct (40.0-54.0) % MCV (80-100) fL MCH (27.0-34.0) pg MCHC (33.0-35.0) g/dL Plt Count (150-450) 10^3/uL Neut % (Auto) (42.2-75.2) % Lymph % (Auto) (20.5-50.1) % Churchill % (Auto) (2-8) % Eos % (Auto) (1.0-3.0) % Baso % (Auto) (0.0-1.0) % Sodium (135-145) mmol/L Potassium (3.6-5.0) mmol/L Chloride (101-111) mmol/L Carbon Dioxide (21.0-31.0) mmol/L Anion Gap BUN (7-18) mg/dL Creatinine (0.6-1.3) mg/dL Est Cr Clr Drug Dosing mL/min Estimated GFR (MDRD) BUN/Creatinine Ratio Glucose (74-105) mg/dL POC Glucose 487 H* (70-105) mg/dl Calcium (8.4-10.2) mg/dl Total Bilirubin (0.2-1.0) mg/dL AST (10-42) IU/L ALT (10-60) IU/L Alkaline Phosphatase (42-121) IU/L Total Protein (6.7-8.2) g/dl Albumin (3.2-5.5) g/dl Globulin Albumin/Globulin Ratio Urine Color Yellow (YELLOW) Urine Appearance Clear (CLEAR) Urine pH 7.5 (5.0-9.0) Ur Specific Lequire 1.015 (1.005-1.030) Urine Protein Negative (NEGATIVE) Urine Glucose (UA) >=1000 H (NEGATIVE) Urine Ketones Negative (NEGATIVE) Urine Occult Blood Negative (NEGATIVE) Urine Nitrite Negative (NEGATIVE) Urine Bilirubin Negative (NEGATIVE) Urine Urobilinogen 1.0 (0.2-1.0) mg/dL Ur Leukocyte Esterase Negative (NEGATIVE) Urine RBC 0-5 /HPF Urine WBC 0-5 (0-5/HPF) /HPF Ur Epithelial Cells Rare /HPF Amorphous Sediment Rare (0/HPF) /HPF Urine Bacteria Rare (0-FEW/HPF) /HPF Urine Mucus Rare /LPF Urine Opiates Screen Negative (NEGATIVE) Ur Oxycodone Screen Negative (NEGATIVE) Urine Methadone Screen Negative (NEGATIVE) Ur Barbiturates Screen Negative (NEGATIVE) U Tricyclic Antidepress Negative (NEGATIVE) Ur Phencyclidine Scrn Negative (NEGATIVE) Ur Amphetamine Screen Negative (NEGATIVE) U Methamphetamines Scrn Negative (NEGATIVE) Urine MDMA Screen Negative (NEGATIVE) U Benzodiazepines Scrn Negative (NEGATIVE) Urine Cocaine Screen Negative (NEGATIVE) U Marijuana (THC) Screen Negative (NEGATIVE) Ketones 01/15/18 01/15/18 01/15/18 Range/Units 15:30 15:30 15:30 WBC 10.0 (5.0-10.0) 10^3/uL RBC 4.27 L (4.6-6.2) 10^6/uL Hgb 10.7 L (14.0-18.0) g/dL Hct 35.1 L (40.0-54.0) % MCV 82.2 D (80-100) fL MCH 25.1 L (27.0-34.0) pg MCHC 30.5 L (33.0-35.0) g/dL Plt Count 210 (150-450) 10^3/uL Neut % (Auto) 75.8 H (42.2-75.2) % Lymph % (Auto) 11.4 L (20.5-50.1) % Churchill % (Auto) 9.8 H (2-8) % Eos % (Auto) 2.6 (1.0-3.0) % Baso % (Auto) 0.4 (0.0-1.0) % Sodium 132 L (135-145) mmol/L Potassium 4.0 (3.6-5.0) mmol/L Chloride 98 L (101-111) mmol/L Carbon Dioxide 26.0 (21.0-31.0) mmol/L Anion Gap 12.0 BUN 9 (7-18) mg/dL Creatinine 0.6 (0.6-1.3) mg/dL Est Cr Clr Drug Dosing 134.58 mL/min Estimated GFR (MDRD) > 60 BUN/Creatinine Ratio 15.00 Glucose 443 H* (74-105) mg/dL POC Glucose (70-105) mg/dl Calcium 8.2 L (8.4-10.2) mg/dl Total Bilirubin 1.7 H (0.2-1.0) mg/dL AST 94 H (10-42) IU/L ALT 73 H (10-60) IU/L Alkaline Phosphatase 206 H (42-121) IU/L Total Protein 6.7 (6.7-8.2) g/dl Albumin 2.4 L (3.2-5.5) g/dl Globulin 4.3 Albumin/Globulin Ratio 0.56 Urine Color (YELLOW) Urine Appearance (CLEAR) Urine pH (5.0-9.0) Ur Specific Lequire (1.005-1.030) Urine Protein (NEGATIVE) Urine Glucose (UA) (NEGATIVE) Urine Ketones (NEGATIVE) Urine Occult Blood (NEGATIVE) Urine Nitrite (NEGATIVE) Urine Bilirubin (NEGATIVE) Urine Urobilinogen (0.2-1.0) mg/dL Ur Leukocyte Esterase (NEGATIVE) Urine RBC /HPF Urine WBC (0-5/HPF) /HPF Ur Epithelial Cells /HPF Amorphous Sediment (0/HPF) /HPF Urine Bacteria (0-FEW/HPF) /HPF Urine Mucus /LPF Urine Opiates Screen (NEGATIVE) Ur Oxycodone Screen (NEGATIVE) Urine Methadone Screen (NEGATIVE) Ur Barbiturates Screen (NEGATIVE) U Tricyclic Antidepress (NEGATIVE) Ur Phencyclidine Scrn (NEGATIVE) Ur Amphetamine Screen (NEGATIVE) U Methamphetamines Scrn (NEGATIVE) Urine MDMA Screen (NEGATIVE) U Benzodiazepines Scrn (NEGATIVE) Urine Cocaine Screen (NEGATIVE) U Marijuana (THC) Screen (NEGATIVE) Ketones Negative Meds: Medications Generic Name Dose Route Start Last Admin Trade Name Freq PRN Reason Stop Dose Admin Sodium Chloride 1,000 mls @ 999 mls/hr 01/15/18 15:58 01/15/18 16:03 Normal Saline IV 01/15/18 16:58 999 mls/hr .BOLUS ONE Administration Departure - Departure Time of Disposition: 16:47 Disposition: Home, Self-Care 01 Condition: Fair Clinical Impression: Influenza B - Discharge Information Instructions: Influenza, Adult, [id number] Forms: ED Department Discharge Care Plan Goals: The patient was advised of the examination and lab results during the visit. The patient was discharged with a script for Tamiflu (75 mg) #10 to take 1 by mouth 2 times per day for 5 days. The patient should continue with his current medications as prescribed. The patient should increase his oral fluid intake. If the patient has any additional symptoms or concerns, the patient should either follow-up with his primary care facility or return to the ED. - My Orders Last 24 Hours: My Active Orders 01/15/18 15:08 Blood Glucose Check, Bedside [RC] ONETIME 01/15/18 15:58 Sodium Chloride 0.9% [Normal Saline] 1,000 ml IV .BOLUS 01/15/18 16:00 CULTURE STREP A CONFIRMATION [RM] Stat STREP SCRN A RAPID W CULT CONF [RM] Stat - Assessment/Plan Last 24 Hours: My Active Orders 01/15/18 15:08 Blood Glucose Check, Bedside [RC] ONETIME 01/15/18 15:58 Sodium Chloride 0.9% [Normal Saline] 1,000 ml IV .BOLUS 01/15/18 16:00 CULTURE STREP A CONFIRMATION [RM] Stat STREP SCRN A RAPID W CULT CONF [RM] Stat I have read and agree with the documentation that has been completed regarding this visit. By signing this record, I attest that the documentation was completed in my physical presence and is an accurate record of the encounter.
== END 2018-01-15 16:55 | disposition home or self-care (01) ==
LOC: DL.ED 15:04
DX: J10.1 Influenza due to other identified influenza virus with other respiratory manifestations (principal); I10 Essential (primary) hypertension; E78.00 Pure hypercholesterolemia, unspecified; J44.9 Chronic obstructive pulmonary disease, unspecified; E11.9 Type 2 diabetes mellitus without complications; Z87.891 Personal history of nicotine dependence; Z79.82 Long term (current) use of aspirin; Z79.4 Long term (current) use of insulin; Z79.899 Other long term (current) drug therapy; Z91.09 Other allergy status, other than to drugs and biological substances
CPT/HCPCS: 36415; 80053; 80305; 81001; 82009; 82962; 85025; 87081; 87430; 87804; 96360; 99285; J7030; 99284

== ENCOUNTER 2019-01-12 14:14 | Emergency (ER) | payer BC, MEDICAID ==
[2019-01-12] MEDS ORDERED: Sodium Chloride 0.9% 10 ML Syringe FLUSH PRN (14:16)
[2019-01-12 14:49] LABS: ANION GAP 18.4; CHLORIDE,CL 102 mmol/L (101-111); SODIUM,NA 138 mmol/L (135-145)
--- NOTE | 2019-01-12 15:23 | CR ---
Clinical history: 58-year-old male complaining of chest pain. Interpretation: Upright AP portable chest film unremarkable and unchanged since 28 October 2017 comparison exam. Normal cardiac silhouette without cephalization of flow, signs of alveolar edema or dependent pleural fluid accumulation. No new lung mass, hilar lymphadenopathy or focal lobar pneumonia. No atelectasis/collapse. No pneumothorax or free subdiaphragmatic air. CONCLUSION: No acute cardiopulmonary abnormality.
[2019-01-12 16:52] VITALS: BP 149/84
--- NOTE | 2019-01-12 16:59 | EDM.PDOC ---
ED HPI GENERAL MEDICAL PROBLEM - General Chief Complaint: Chest Pain Stated Complaint: AMBULANCE,SOB Time Seen by Provider: 01/12/19 14:40 Source of Information: Reports: Patient, EMS, EMS Notes Reviewed, RN, RN Notes Reviewed History Limitations: Reports: No Limitations - History of Present Illness INITIAL COMMENTS - FREE TEXT/NARRATIVE: Pt to ER per [facility] with c/o pain in the upper chest and SOB after going outside to [employer]. 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 He states when he went outside he felt as though he couldn't breathe, and felt his chest got heavy. At present, patient has no pain in the chest, SOB, N/V/D, or other complaints. He states he thought if he could get his nebulizer machine he would have felt better. Patient was given a nebulizer en route by EMS and states he feels much better. Onset: Today, Sudden - Related Data Allergies Allergy/AdvReac Type Severity Reaction Status Date / Time envirmental Allergy Shortness Uncoded 01/15/18 15:04 of Breath Home Meds: Home Meds Insulin Detemir [Levemir Flextouch] 20 units SUBCUT DAILY 03/09/16 [History] Lisinopril [Prinivil] 40 mg PO DAILY 03/09/16 [History] Aspirin [Halfprin] 162 mg PO DAILY 01/15/18 [History] Past Medical History HEENT History: Reports: Impaired Vision, Other (See Below) Other HEENT History: chronic conjunctivitis, wears glasses Cardiovascular History: Reports: High Cholesterol, Hypertension Respiratory History: Reports: COPD Gastrointestinal History: Reports: None Genitourinary History: Reports: None Musculoskeletal History: Reports: None Neurological History: Reports: None Psychiatric History: Reports: Anxiety Endocrine/Metabolic History: Reports: Diabetes, Type II Hematologic History: Reports: None Immunologic History: Reports: None Oncologic (Cancer) History: Reports: None Dermatologic History: Reports: None - Infectious Disease History Infectious Disease History: Reports: Chicken Pox - Past Surgical History Head Surgeries/Procedures: Reports: None Social & Family History - Family History Family Medical History: Noncontributory - Tobacco Use Smoking Status *Q: Never Smoker Second Hand Smoke Exposure: No - Caffeine Use Caffeine Use: Reports: None - Recreational Drug Use Recreational Drug Use: No ED ROS GENERAL - Review of Systems Review Of Systems: ROS reveals no pertinent complaints other than HPI. ED EXAM, GENERAL - Physical Exam Exam: See Below Exam Limited By: No Limitations General Appearance: Alert, WD/WN, No Apparent Distress Eye Exam: Bilateral Eye: EOMI, Normal Inspection Ears: Normal External Exam, Hearing Grossly Normal Nose: Normal Inspection, Normal Mucosa, No Blood Throat/Mouth: Normal Inspection, Normal Lips, Normal Teeth, Normal Gums, Normal Oropharynx, Normal Voice, No Airway Compromise Head: Atraumatic, Normocephalic Neck: Normal Inspection, Supple, Non-Tender, Full Range of Motion Respiratory/Chest: No Respiratory Distress, Lungs Clear, Normal Breath Sounds, No Accessory Muscle Use, Chest Non-Tender Cardiovascular: Normal Peripheral Pulses, Regular Rate, Rhythm, No Edema, No Gallop, No JVD, No Murmur, No Rub Peripheral Pulses: 2+: Radial (L), Radial (R) GI/Abdominal: Normal Bowel Sounds, Soft, Non-Tender, No Organomegaly, No Distention, No Abnormal Bruit, No Mass (Male) Exam: Deferred Rectal (Males) Exam: Deferred Back Exam: Normal Inspection, Full Range of Motion, NT Extremities: Normal Inspection, Normal Range of Motion, Non-Tender, Normal Capillary Refill, No Pedal Edema Neurological: Alert, Oriented, CN II-XII Intact, Normal Cognition, Normal Gait, Normal Reflexes, No Motor/Sensory Deficits Psychiatric: Normal Affect, Normal Mood Skin Exam: Warm, Dry, Intact, Normal Color, No Rash Lymphatic: No Adenopathy Course - Vital Signs Last Recorded V/S: Last Vital Signs Temp 99.3 F 01/12/19 16:52 Pulse 89 01/12/19 16:45 Resp 15 01/12/19 16:45 BP 149/84 H 01/12/19 16:45 Pulse Ox 97 01/12/19 16:45 - Orders/Labs/Meds Labs: Laboratory Tests 01/12/19 01/12/19 01/12/19 Range/Units 14:20 14:20 15:22 WBC 6.2 (5.0-10.0) 10^3/uL RBC 5.50 (4.6-6.2) 10^6/uL Hgb 16.7 D (14.0-18.0) g/dL Hct 47.6 (40.0-54.0) % MCV 86.5 D (80-100) fL MCH 30.4 (27.0-34.0) pg MCHC 35.1 H (33.0-35.0) g/dL Plt Count 151 (150-450) 10^3/uL Neut % (Auto) 63.8 (42.2-75.2) % Lymph % (Auto) 26.9 (20.5-50.1) % [place] % (Auto) 6.6 (2-8) % Eos % (Auto) 2.4 (1.0-3.0) % Baso % (Auto) 0.3 (0.0-1.0) % Sodium 138 (135-145) mmol/L Potassium 3.4 L (3.6-5.0) mmol/L Chloride 102 (101-111) mmol/L Carbon Dioxide 21.0 (21.0-31.0) mmol/L Anion Gap 18.4 BUN 12 (7-18) mg/dL Creatinine 0.7 (0.6-1.3) mg/dL Est Cr Clr Drug Dosing TNP Estimated GFR (MDRD) > 60 BUN/Creatinine Ratio 17.14 Glucose 103 (74-105) mg/dL Calcium 9.2 (8.4-10.2) mg/dl Total Bilirubin 1.4 H (0.2-1.0) mg/dL AST 54 H (10-42) IU/L ALT 50 (10-60) IU/L Alkaline Phosphatase 119 (42-121) IU/L Troponin I < 0.02 (0.00-0.02) ng/ml B-Natriuretic Peptide 10 (0-100) pg/ml Total Protein 8.0 (6.7-8.2) g/dl Albumin 4.3 (3.2-5.5) g/dl Globulin 3.7 Albumin/Globulin Ratio 1.16 Urine Color Yellow (YELLOW) Urine Appearance Clear (CLEAR) Urine pH 7.0 (5.0-9.0) Ur Specific [place] 1.015 (1.005-1.030) Urine Protein Negative (NEGATIVE) Urine Glucose (UA) Negative (NEGATIVE) Urine Ketones 15 H (NEGATIVE) Urine Occult Blood Negative (NEGATIVE) Urine Nitrite Negative (NEGATIVE) Urine Bilirubin Negative (NEGATIVE) Urine Urobilinogen 1.0 (0.2-1.0) mg/dL Ur Leukocyte Esterase Negative (NEGATIVE) Meds: Medications Discontinued Medications Generic Name Dose Route Start Last Admin Trade Name Freq PRN Reason Stop Dose Admin Sodium Chloride 10 ml 01/12/19 14:16 Saline Flush FLUSH ASDIRECTED PRN Keep Vein Open - Radiology Interpretation Free Text/Narrative:: Chest xray: No acute findings See rad report Departure - Departure Time of Disposition: 16:57 Disposition: Home, Self-Care 01 Condition: Fair Clinical Impression: Bronchospasm Upper respiratory infection Qualifiers: URI type: unspecified viral URI Qualified Code(s): J06.9 - Acute upper respiratory infection, unspecified Instructions: Viral Respiratory Infection, [id number], Upper Respiratory Infection, Adult, [id number], Bronchospasm, Adult, [id number] Referrals: PCP,None [Primary Care Provider] - Forms: ED Department Discharge Additional Instructions: Continue to use nebulizers as directed Follow up with your primary care facility
== END 2019-01-12 17:14 | disposition home or self-care (01) ==
LOC: DL.ED 14:14
DX: J98.01 Acute bronchospasm (principal); J06.9 Acute upper respiratory infection, unspecified; I10 Essential (primary) hypertension; E11.9 Type 2 diabetes mellitus without complications; Z79.4 Long term (current) use of insulin; Z79.82 Long term (current) use of aspirin; Z79.899 Other long term (current) drug therapy; Z91.09 Other allergy status, other than to drugs and biological substances
CPT/HCPCS: 36415; 71045; 80053; 81003; 83880; 84484; 85025; 93005; 99285

== ENCOUNTER 2019-03-04 14:34 | Emergency (ER) | payer SELFPAY ==
[2019-03-04 14:06] VITALS: BP 174/89
--- NOTE | 2019-03-04 14:27 | CR ---
Clinical history: 58-year-old male experiencing shortness of breath. Interpretation: No acute new cardiopulmonary abnormality identified in the interval since AP chest film 12 January 2019. Normal cardiac silhouette without cephalization of vascular flow, new signs of alveolar edema or dependent pleural fluid accumulation. Ill-defined nodular density right midlung most probably represents superimposition of costochondral cartilage calcification on top of the posterior right seventh rib i.e. artifact. No new lung mass, hilar lymphadenopathy or focal lobar pneumonia. No atelectasis/collapse. No pneumothorax.
[2019-03-04 14:31] LABS: ANION GAP 15.9; CHLORIDE,CL 107 mmol/L (101-111); SODIUM,NA 138 mmol/L (135-145)
--- NOTE | 2019-03-04 14:36 | EDM.PDOC ---
ED HPI GENERAL MEDICAL PROBLEM - General Stated Complaint: CALL IN Time Seen by Provider: 03/04/19 14:25 Source of Information: Reports: Patient History Limitations: Reports: No Limitations - History of Present Illness INITIAL COMMENTS - FREE TEXT/NARRATIVE: This 58 yo male patient was brought to the ED by [facility] due to difficulties breathing, a headache and possible diabetic problems. Onset: Today Duration: Minutes:, Improving Location: Reports: Other Quality: Reports: Other Severity: Moderate Improves with: Reports: None Worsens with: Reports: None Context: Reports: Other Associated Symptoms: Reports: No Other Symptoms - Related Data Allergies Allergy/AdvReac Type Severity Reaction Status Date / Time envirmental Allergy Shortness Uncoded 03/04/19 14:09 of Breath Home Meds: Home Meds Insulin Detemir [Levemir Flextouch] 20 units SUBCUT DAILY 03/09/16 [History] Lisinopril [Prinivil] 40 mg PO DAILY 03/09/16 [History] Aspirin [Halfprin] 162 mg PO DAILY 01/15/18 [History] Past Medical History HEENT History: Reports: Impaired Vision, Other (See Below) Other HEENT History: chronic conjunctivitis, wears glasses Cardiovascular History: Reports: High Cholesterol, Hypertension Respiratory History: Reports: COPD Gastrointestinal History: Reports: None Genitourinary History: Reports: None Musculoskeletal History: Reports: None Neurological History: Reports: None Psychiatric History: Reports: Anxiety Endocrine/Metabolic History: Reports: Diabetes, Type II Hematologic History: Reports: None Immunologic History: Reports: None Oncologic (Cancer) History: Reports: None Dermatologic History: Reports: None - Infectious Disease History Infectious Disease History: Reports: Chicken Pox - Past Surgical History Head Surgeries/Procedures: Reports: None Social & Family History - Family History Family Medical History: Noncontributory - Tobacco Use Smoking Status *Q: Never Smoker - Caffeine Use Caffeine Use: Reports: None - Alcohol Use Days Per Week of Alcohol Use: 1 Number of Drinks Per Day: 6 Total Drinks Per Week: 6 - Recreational Drug Use Recreational Drug Use: No ED ROS GENERAL - Review of Systems Review Of Systems: ROS reveals no pertinent complaints other than HPI. ED EXAM, GENERAL - Physical Exam Exam: See Below Exam Limited By: No Limitations General Appearance: Alert, WD/WN, No Apparent Distress Eye Exam: Bilateral Eye: EOMI, Normal Inspection, PERRL Ears: Normal External Exam, Normal Canal, Hearing Grossly Normal, Normal TMs Nose: Normal Inspection, Normal Mucosa, No Blood Throat/Mouth: Normal Inspection, Normal Lips, Normal Teeth, Normal Gums, Normal Oropharynx, Normal Voice, No Airway Compromise Head: Atraumatic, Normocephalic Neck: Normal Inspection, Supple, Non-Tender, Full Range of Motion Respiratory/Chest: No Respiratory Distress, Lungs Clear, Normal Breath Sounds, No Accessory Muscle Use, Chest Non-Tender Cardiovascular: Normal Peripheral Pulses, Regular Rate, Rhythm, No Edema, No Gallop, No JVD, No Murmur, No Rub GI/Abdominal: Normal Bowel Sounds, Soft, Non-Tender, No Organomegaly, No Distention, No Abnormal Bruit, No Mass (Male) Exam: Deferred Rectal (Males) Exam: Deferred Back Exam: Normal Inspection, Full Range of Motion, NT Extremities: Normal Inspection, Normal Range of Motion, Non-Tender, Normal Capillary Refill, No Pedal Edema Neurological: Alert, Oriented, CN II-XII Intact, Normal Cognition, Normal Gait, Normal Reflexes, No Motor/Sensory Deficits Psychiatric: Normal Affect, Normal Mood Skin Exam: Warm, Dry, Intact, Normal Color, No Rash Lymphatic: No Adenopathy Course - Vital Signs Last Recorded V/S: Last Vital Signs Temp 36.9 C 03/04/19 14:05 Pulse 89 03/04/19 14:05 Resp 12 03/04/19 14:05 BP 174/89 H 03/04/19 14:05 Pulse Ox 98 03/04/19 14:05 - Orders/Labs/Meds Orders: Active Orders 24 hr Category Date Time Status EKG Documentation Completion [RC] URGENT Care 03/04/19 13:58 Ordered Glucose [Blood Glucose Check, Bedside] [RC] ONETIME Care 03/04/19 14:45 Ordered Late Tray [DIET] Routine Diet 03/04/19 14:31 Active Labs: Laboratory Tests 03/04/19 03/04/19 03/04/19 Range/Units 14:07 14:07 14:07 WBC 4.6 L (5.0-10.0) 10^3/uL RBC 4.46 L (4.6-6.2) 10^6/uL Hgb 13.6 L D (14.0-18.0) g/dL Hct 39.1 L (40.0-54.0) % MCV 87.7 (80-100) fL MCH 30.5 (27.0-34.0) pg MCHC 34.8 (33.0-35.0) g/dL Plt Count 161 (150-450) 10^3/uL Neut % (Auto) 60.0 (42.2-75.2) % Lymph % (Auto) 21.5 (20.5-50.1) % [place] % (Auto) 13.6 H (2-8) % Eos % (Auto) 4.2 H (1.0-3.0) % Baso % (Auto) 0.7 (0.0-1.0) % Sodium 138 (135-145) mmol/L Potassium 3.9 (3.6-5.0) mmol/L Chloride 107 (101-111) mmol/L Carbon Dioxide 19.0 L (21.0-31.0) mmol/L Anion Gap 15.9 BUN 15 (7-18) mg/dL Creatinine 0.7 (0.6-1.3) mg/dL Est Cr Clr Drug Dosing 114.00 mL/min Estimated GFR (MDRD) > 60 BUN/Creatinine Ratio 21.42 Glucose 194 H (74-105) mg/dL Calcium 8.2 L (8.4-10.2) mg/dl Total Bilirubin 0.9 (0.2-1.0) mg/dL AST 52 H (10-42) IU/L ALT 48 (10-60) IU/L Alkaline Phosphatase 90 (42-121) IU/L Troponin I < 0.02 (0.00-0.02) ng/ml Total Protein 6.8 (6.7-8.2) g/dl Albumin 3.7 (3.2-5.5) g/dl Globulin 3.1 Albumin/Globulin Ratio 1.19 Ketones Negative Departure - Departure Time of Disposition: 15:13 Disposition: Home, Self-Care 01 Condition: Fair Clinical Impression: Headache Qualifiers: Headache type: unspecified Headache chronicity pattern: acute headache Intractability: not intractable Qualified Code(s): R51 - Headache - Discharge Information *PRESCRIPTION DRUG MONITORING PROGRAM REVIEWED*: Not Applicable *COPY OF PRESCRIPTION DRUG MONITORING REPORT IN PATIENT VALERY: Not Applicable Instructions: General Headache Without Cause, [id number] Forms: ED Department Discharge Care Plan Goals: The patient was advised of the examination, lab, EKG and x-ray results during the visit. The patient was encouraged to continue to take his medications as prescribed. If the patient has any additional symptoms or concerns, the patient should either return to the emergency department or visit his primary care facility. - My Orders Last 24 Hours: My Active Orders 03/04/19 13:58 EKG Documentation Completion [RC] URGENT 03/04/19 14:31 Late Tray [DIET] Routine 03/04/19 14:45 Glucose [Blood Glucose Check, Bedside] [RC] ONETIME - Assessment/Plan Last 24 Hours: My Active Orders 03/04/19 13:58 EKG Documentation Completion [RC] URGENT 03/04/19 14:31 Late Tray [DIET] Routine 03/04/19 14:45 Glucose [Blood Glucose Check, Bedside] [RC] ONETIME
== END 2019-03-04 15:19 | disposition home or self-care (01) ==
LOC: DL.ED 14:34
DX: R51 Headache (principal); E11.9 Type 2 diabetes mellitus without complications; I10 Essential (primary) hypertension; J44.9 Chronic obstructive pulmonary disease, unspecified; Z79.4 Long term (current) use of insulin; Z79.82 Long term (current) use of aspirin; Z91.09 Other allergy status, other than to drugs and biological substances
CPT/HCPCS: 36415; 71045; 80053; 82009; 82962; 84484; 85025; 93005; 99285-25

== ENCOUNTER 2020-02-18 10:16 | Emergency (ER) | payer SELFPAY ==
[2020-02-18 10:50] VITALS: BP 177/102; PULSE 92
--- NOTE | 2020-02-18 10:54 | EDM.PDOC ---
ED HPI GENERAL MEDICAL PROBLEM - General Chief Complaint: Respiratory Problem Stated Complaint: cough/flu symptoms Time Seen by Provider: 02/18/20 10:45 Source of Information: Reports: Patient, Old Records, RN, RN Notes Reviewed History Limitations: Reports: No Limitations - History of Present Illness INITIAL COMMENTS - FREE TEXT/NARRATIVE: Pt presents to ER with request for a note to return to work. Pt works at the [employer] and states his boss told him that he cannot return to work until he is cleared by a physician. Pt states last Sunday he had a headache, cough and weak. Unknown if he had a fever but had the sweats. He went to work Sunday, called off sick on , went to work on Sunday, and today he states he still has a cough but is feeling better and wants to go back to work. Pt denies shortness of breath, chest pain, fevers, recent travel, or contact with any confirmed or suspected Covid-19 cases. Duration: Improving Location: Reports: Generalized Severity: Mild Improves with: Reports: None Worsens with: Reports: None Associated Symptoms: Reports: No Other Symptoms - Related Data Allergies Allergy/AdvReac Type Severity Reaction Status Date / Time envirmental Allergy Shortness Uncoded 02/18/20 10:41 of Breath Home Meds: Home Meds Insulin Detemir [Levemir Flextouch] 20 units SUBCUT DAILY 03/09/16 [History] lisinopriL [Prinivil] 40 mg PO DAILY 03/09/16 [History] Aspirin [Halfprin] 162 mg PO DAILY 01/15/18 [History] Past Medical History HEENT History: Reports: Impaired Vision, Other (See Below) Other HEENT History: chronic conjunctivitis, wears glasses Cardiovascular History: Reports: High Cholesterol, Hypertension Respiratory History: Reports: COPD Gastrointestinal History: Reports: None Genitourinary History: Reports: None Musculoskeletal History: Reports: None Neurological History: Reports: None Psychiatric History: Reports: Anxiety Endocrine/Metabolic History: Reports: Diabetes, Type II Hematologic History: Reports: None Immunologic History: Reports: None Oncologic (Cancer) History: Reports: None Dermatologic History: Reports: None - Infectious Disease History Infectious Disease History: Reports: Chicken Pox - Past Surgical History Head Surgeries/Procedures: Reports: None Social & Family History - Family History Family Medical History: Noncontributory - Caffeine Use Caffeine Use: Reports: None - Living Situation & Occupation Living situation: Reports: with Family Occupation: Employed ED ROS GENERAL - Review of Systems Review Of Systems: Comprehensive ROS is negative, except as noted in HPI. ED EXAM, GENERAL - Physical Exam Exam: See Below Exam Limited By: No Limitations General Appearance: Alert, WD/WN, No Apparent Distress Nose: Normal Inspection, Normal Mucosa, No Blood Throat/Mouth: Normal Inspection, Normal Lips, Normal Voice, No Airway Compromise Head: Atraumatic, Normocephalic Neck: Normal Inspection, Supple, Non-Tender, Full Range of Motion Respiratory/Chest: No Respiratory Distress, Lungs Clear, Normal Breath Sounds, No Accessory Muscle Use, Chest Non-Tender, Other (Mild dry cough.) Cardiovascular: Regular Rate, Rhythm Back Exam: Normal Inspection Extremities: Normal Inspection Neurological: Alert, Oriented, No Motor/Sensory Deficits Psychiatric: Normal Mood Skin Exam: Warm, Dry, Intact, Normal Color Course - Vital Signs Last Recorded V/S: Last Vital Signs Temp 98.3 F 02/18/20 10:37 Pulse 92 02/18/20 10:37 Resp 16 02/18/20 10:37 BP 177/102 H 02/18/20 10:37 Pulse Ox 92 L 02/18/20 10:37 Departure - Departure Time of Disposition: 10:52 Disposition: Home, Self-Care 01 Condition: Good Clinical Impression: Viral URI with cough - Discharge Information *PRESCRIPTION DRUG MONITORING PROGRAM REVIEWED*: Not Applicable *COPY OF PRESCRIPTION DRUG MONITORING REPORT IN PATIENT VALERY: Not Applicable Instructions: Upper Respiratory Infection, Adult, [id number] Forms: ED Department Discharge Additional Instructions: May use over the counter cough medication. May return to work once free of fever (without using fever reducing medications ) for 72 hours. Sepsis Event Note - Evaluation Sepsis Screening Result: No Definite Risk - Focused Exam Vital Signs: Vital Signs Temp Pulse Resp BP Pulse Ox 02/18/20 10:37 98.3 F 92 16 177/102 H 92 L Date Exam was Performed: 02/18/20 Time Exam was Performed: 10:55
== END 2020-02-18 11:07 | disposition home or self-care (01) ==
LOC: DL.ED 10:16
DX: J06.9 Acute upper respiratory infection, unspecified (principal); I10 Essential (primary) hypertension; E11.9 Type 2 diabetes mellitus without complications; J44.9 Chronic obstructive pulmonary disease, unspecified; Z79.4 Long term (current) use of insulin; Z79.82 Long term (current) use of aspirin; Z79.899 Other long term (current) drug therapy; Z91.048 Other nonmedicinal substance allergy status
CPT/HCPCS: 99282; 99283

== ENCOUNTER 2020-04-14 14:19 | Emergency (ER) | payer OTHER ==
--- NOTE | 2020-04-14 14:47 | EDM.PDOC ---
ED HPI GENERAL MEDICAL PROBLEM - General Chief Complaint: Respiratory Problem Stated Complaint: ambulance Time Seen by Provider: 04/14/20 14:35 Source of Information: Reports: Patient History Limitations: Reports: No Limitations - History of Present Illness INITIAL COMMENTS - FREE TEXT/NARRATIVE: This 59 yo male patient reports to the ED due to a 3 week history of increased shortness of breath. The patient reports he ran out of his medications for his COPD about 3 weeks ago. The patient reports he attempted to get into the clinic , but was advised that he would need to make an appointment. The patient reports he does not have time to make an appointment, because he is working at [employer]. The patient reports he has been using his diabetes medications as directed and his sugar levels have been running in the 200's. Duration: Week(s):, Getting Worse, Intermittent Location: Reports: Chest Quality: Reports: Other Severity: Moderate Improves with: Reports: None Worsens with: Reports: None Context: Reports: Other Associated Symptoms: Reports: cough w sputum, Shortness of Breath - Related Data Allergies Allergy/AdvReac Type Severity Reaction Status Date / Time envirmental Allergy Shortness Uncoded 02/18/20 10:41 of Breath Past Medical History HEENT History: Reports: Impaired Vision, Other (See Below) Other HEENT History: chronic conjunctivitis, wears glasses Cardiovascular History: Reports: High Cholesterol, Hypertension Respiratory History: Reports: COPD Other Respiratory History: seasonal allergy respiratory issues Gastrointestinal History: Reports: None Genitourinary History: Reports: None Musculoskeletal History: Reports: None Neurological History: Reports: None Psychiatric History: Reports: Anxiety Endocrine/Metabolic History: Reports: Diabetes, Type II Hematologic History: Reports: None Immunologic History: Reports: None Oncologic (Cancer) History: Reports: None Dermatologic History: Reports: None - Infectious Disease History Infectious Disease History: Reports: Chicken Pox - Past Surgical History Head Surgeries/Procedures: Reports: None Social & Family History - Family History Family Medical History: Noncontributory - Caffeine Use Caffeine Use: Reports: None - Living Situation & Occupation Living situation: Reports: with Family Occupation: Employed ED ROS GENERAL - Review of Systems Review Of Systems: Comprehensive ROS is negative, except as noted in HPI. ED EXAM, GENERAL - Physical Exam Exam: See Below Exam Limited By: No Limitations General Appearance: Alert, WD/WN, No Apparent Distress Eye Exam: Bilateral Eye: EOMI, Normal Inspection, PERRL Ears: Normal External Exam, Normal Canal, Hearing Grossly Normal, Normal TMs Nose: Normal Inspection, Normal Mucosa, No Blood Throat/Mouth: Normal Inspection, Normal Lips, Normal Teeth, Normal Gums, Normal Oropharynx, Normal Voice, No Airway Compromise Head: Atraumatic, Normocephalic Neck: Normal Inspection, Supple, Non-Tender, Full Range of Motion Respiratory/Chest: No Respiratory Distress, No Accessory Muscle Use, Chest Non- Tender, Decreased Breath Sounds Cardiovascular: Normal Peripheral Pulses, Regular Rate, Rhythm, No Edema, No Gallop, No JVD, No Murmur, No Rub GI/Abdominal: Normal Bowel Sounds, Soft, Non-Tender, No Organomegaly, No Distention, No Abnormal Bruit, No Mass (Male) Exam: Deferred Rectal (Males) Exam: Deferred Back Exam: Normal Inspection, Full Range of Motion, NT Extremities: Normal Inspection, Normal Range of Motion, Non-Tender, Normal Capillary Refill, No Pedal Edema Neurological: Alert, Oriented, CN II-XII Intact, Normal Cognition, Normal Gait, Normal Reflexes, No Motor/Sensory Deficits Psychiatric: Normal Affect, Normal Mood Skin Exam: Warm, Dry, Intact, Normal Color, No Rash Lymphatic: No Adenopathy Course - Vital Signs Last Recorded V/S: Last Vital Signs Temp 35.9 C L 04/14/20 14:56 Pulse 99 04/14/20 14:56 Resp 15 04/14/20 14:56 BP 182/87 H 04/14/20 14:56 Pulse Ox 97 04/14/20 14:56 - Orders/Labs/Meds Orders: Active Orders 24 hr Category Date Time Status EKG Documentation Completion [RC] STAT Care 04/14/20 14:34 Ordered CULTURE BLOOD [BC] Stat Lab 04/14/20 14:35 Ordered Labs: Laboratory Tests 04/14/20 04/14/20 04/14/20 Range/Units 14:40 14:53 14:53 WBC 7.5 (5.0-10.0) 10^3/uL RBC 5.17 (4.6-6.2) 10^6/uL Hgb 13.4 L (14.0-18.0) g/dL Hct 40.9 (40.0-54.0) % MCV 79.1 L D (80-100) fL MCH 25.9 L (27.0-34.0) pg MCHC 32.8 L (33.0-35.0) g/dL Plt Count 191 (150-450) 10^3/uL Neut % (Auto) 71.7 (42.2-75.2) % Lymph % (Auto) 12.8 L (20.5-50.1) % [place] % (Auto) 15.3 H (2-8) % Eos % (Auto) 0.1 L (1.0-3.0) % Baso % (Auto) 0.1 (0.0-1.0) % Sodium 132 L (136-145) mmol/L Potassium 4.5 (3.5-5.1) mmol/L Chloride 95 L (98-107) mmol/L Carbon Dioxide 27 (21-32) mmol/L Anion Gap 14.5 H (7-13) mEq/L BUN 10 (7-18) mg/dL Creatinine 0.72 (0.70-1.30) mg/dL Est Cr Clr Drug Dosing 109.51 mL/min Estimated GFR (MDRD) > 60 BUN/Creatinine Ratio 13.9 (No establ ref range) Glucose 367 H (74-99) mg/dL Lactic Acid (0.4-2.0) mmol/L Calcium 9.2 (8.5-10.1) mg/dL Total Bilirubin 1.1 H (0.2-1.0) mg/dL AST 82 H (15-37) U/L ALT 68 H (16-63) U/L Alkaline Phosphatase 205 H (46-116) U/L Troponin I < 0.017 (0.000-0.056) ng/mL Total Protein 8.0 (6.4-8.2) g/dL Albumin 3.1 L (3.4-5.0) g/dL Globulin 4.9 Albumin/Globulin Ratio 0.63 SARS-CoV-2 RNA (RT-PCR) Negative (NEGATIVE) 04/14/20 Range/Units 14:53 WBC (5.0-10.0) 10^3/uL RBC (4.6-6.2) 10^6/uL Hgb (14.0-18.0) g/dL Hct (40.0-54.0) % MCV (80-100) fL MCH (27.0-34.0) pg MCHC (33.0-35.0) g/dL Plt Count (150-450) 10^3/uL Neut % (Auto) (42.2-75.2) % Lymph % (Auto) (20.5-50.1) % [place] % (Auto) (2-8) % Eos % (Auto) (1.0-3.0) % Baso % (Auto) (0.0-1.0) % Sodium (136-145) mmol/L Potassium (3.5-5.1) mmol/L Chloride (98-107) mmol/L Carbon Dioxide (21-32) mmol/L Anion Gap (7-13) mEq/L BUN (7-18) mg/dL Creatinine (0.70-1.30) mg/dL Est Cr Clr Drug Dosing mL/min Estimated GFR (MDRD) BUN/Creatinine Ratio (No establ ref range) Glucose (74-99) mg/dL Lactic Acid 1.2 (0.4-2.0) mmol/L Calcium (8.5-10.1) mg/dL Total Bilirubin (0.2-1.0) mg/dL AST (15-37) U/L ALT (16-63) U/L Alkaline Phosphatase (46-116) U/L Troponin I (0.000-0.056) ng/mL Total Protein (6.4-8.2) g/dL Albumin (3.4-5.0) g/dL Globulin Albumin/Globulin Ratio SARS-CoV-2 RNA (RT-PCR) (NEGATIVE) Departure - Departure Time of Disposition: 16:28 Disposition: Home, Self-Care 01 Condition: Fair Clinical Impression: COPD exacerbation - Discharge Information *PRESCRIPTION DRUG MONITORING PROGRAM REVIEWED*: Not Applicable *COPY OF PRESCRIPTION DRUG MONITORING REPORT IN PATIENT VALERY: Not Applicable Instructions: Chronic Obstructive Pulmonary Disease, [id number] Forms: ED Department Discharge Care Plan Goals: The patient was advised of the examination and lab results during the visit. The patient was discharged with a script for Albuterol Nebulizer Solution (0.083 %) #1 box to do 1 treatment every 6 hours as needed for shortness of breath and Augmentin (500/125) #20 to take 1 by mouth 2 times per day for 10 days. If the patient has any additional symptoms or concerns, the patient should visit his primary care facility or return to the emergency department. Sepsis Event Note - Focused Exam Vital Signs: Vital Signs Temp Pulse Resp BP Pulse Ox 04/14/20 14:56 35.9 C L 99 15 182/87 H 97 Date Exam was Performed: 04/14/20 Time Exam was Performed: 16:28 - My Orders Last 24 Hours: My Active Orders 04/14/20 14:34 EKG Documentation Completion [RC] STAT 04/14/20 14:35 CULTURE BLOOD [BC] Stat - Assessment/Plan Last 24 Hours: My Active Orders 04/14/20 14:34 EKG Documentation Completion [RC] STAT 04/14/20 14:35 CULTURE BLOOD [BC] Stat
[2020-04-14 15:01] VITALS: BP 182/87; PULSE 99
[2020-04-14 15:23] LABS: ANION GAP 14.5 mEq/L (7-13); CHLORIDE,CL 95 mmol/L (98-107); SODIUM,NA 132 mmol/L (136-145)
--- NOTE | 2020-04-14 15:45 | CR ---
EXAMINATION: Chest 2V SEX: Male AGE: 59 years CLINICAL HISTORY: 59-year-old male emergency department with a COUGH. INTERPRETATION: 1. Subtle nodular density lower right chest not evident in retrospect on 04 March 2019. Possible nipple shadow but must exclude developing lung lesion and suggest unenhanced CT scan of the chest on an elective basis. 2. Normal cardiac silhouette and pulmonary vascularity (external testing lead leads). No pulmonary vascular congestion, cephalization of flow, alveolar edema or dependent pleural fluid accumulation. 3. No other parenchymal lung nodule or mass lesion and no sign of hilar or mediastinal lymphadenopathy. Tracheobronchial airway unremarkable. 4. No lobar pneumonia, atelectasis or collapse. 5. No pneumothorax or pneumomediastinum. Minimal hypertrophic spondylosis several levels mid dorsal spine. CONCLUSION: No sign of heart failure or lobar pneumonia. Subtle nodular density lower hemithorax, on the right. (See above) No new infiltrate or atelectasis.
== END 2020-04-14 16:45 | disposition home or self-care (01) ==
LOC: DL.ED 14:19
DX: J44.1 Chronic obstructive pulmonary disease with (acute) exacerbation (principal); I10 Essential (primary) hypertension; E11.9 Type 2 diabetes mellitus without complications; Z91.048 Other nonmedicinal substance allergy status; Z20.828 Contact with and (suspected) exposure to other viral communicable diseases
CPT/HCPCS: 36415; 71046; 80053; 83605; 84484; 85025; 87040; 93005; 99284; 99285-25; U0002

== ENCOUNTER 2021-12-23 00:40 | Emergency (ER) | payer OTHER ==
[2021-12-23] MEDS ORDERED: Sodium Chloride 0.9% 10 ML Syringe FLUSH PRN (00:50)
[2021-12-23 00:52] VITALS: BP 115/76; PULSE 98
[2021-12-23] MEDS ORDERED: HYDROmorphone 0.5 MG/0.5 ML Syringe IVPUSH ONE (01:01)
[2021-12-23] MEDS ORDERED: MVI, Adult with Vitamin K 10 ML, Folic Acid 1 MG, Thiamine 100 MG in Lactated Ringers 1... IV ONE ×4 (01:02)
[2021-12-23] MEDS ORDERED: Gentamicin 0.3% Ophth Soln 5 ML Bottle ONE (01:08)
[2021-12-23 01:22] LABS: ANION GAP 11.2 mEq/L (7-13); CHLORIDE,CL 107 mmol/L (98-107); SODIUM,NA 139 mmol/L (136-145)
[2021-12-23] MEDS ORDERED: Iopamidol 612 MG/ML 100 ML Bottle IVPUSH ONE (01:27)
[2021-12-23 01:53] LABS: CORONAVIRUS COVID-19 NAA NEGATIVE (NEGATIVE)
[2021-12-23] MEDS ORDERED: Gentamicin 0.3% Ophth Soln 5 ML Bottle EYEBOTH ONE (02:35)
[2021-12-23 03:11] LABS: AMPHETAMINES,URINE NEGATIVE (NEGATIVE); BARBITURATES,URINE NEGATIVE (NEGATIVE); BENZODIAZEPINE,URINE NEGATIVE (NEGATIVE); MDMA (ECSTASY), URINE NEGATIVE (NEGATIVE); METHADONE,URINE NEGATIVE (NEGATIVE); METHAMPHETAMINES,URINE NEGATIVE (NEGATIVE); OPIATES,URINE POSITIVE (NEGATIVE); OXYCODONE,URINE NEGATIVE (NEGATIVE); PHENCYCLIDINE,URINE NEGATIVE (NEGATIVE); TCA,URINE NEGATIVE (NEGATIVE)
[2021-12-23] MEDS ORDERED: Sodium Chloride 0.9% 1,000 ML IV ONE ×2 (03:31→05:03)
== END 2021-12-23 05:12 | disposition home or self-care (01) ==
LOC: DL.ED 00:40
DX: K70.31 Alcoholic cirrhosis of liver with ascites (principal); F10.120 Alcohol abuse with intoxication, uncomplicated; D69.6 Thrombocytopenia, unspecified; H10.023 Other mucopurulent conjunctivitis, bilateral; E78.00 Pure hypercholesterolemia, unspecified; I10 Essential (primary) hypertension; J44.9 Chronic obstructive pulmonary disease, unspecified; E11.9 Type 2 diabetes mellitus without complications; Y90.8 Blood alcohol level of 240 mg/100 ml or more; Z72.0 Tobacco use; Z91.048 Other nonmedicinal substance allergy status; Z79.82 Long term (current) use of aspirin; Z79.899 Other long term (current) drug therapy; Z79.4 Long term (current) use of insulin; Z20.822 Contact with and (suspected) exposure to COVID-19
CPT/HCPCS: 0240U; 36415; 74177; 80053; 80305; 80307; 81001; 82140; 82150; 82272; 82728; 83540; 83550; 83605; 83615; 83690; 83735; 85025; 85610; 86140; 93005; 96365; 96375; 99284; A9270; J1170; J3411; J7030; J7120; Q9967; 93010; 99285; J3490

== ENCOUNTER 2022-04-25 18:27 | Emergency (ER) | payer MEDICAID ==
[2022-04-25 20:22] LABS: ANION GAP 11.6 mEq/L (7-13); CHLORIDE,CL 106 mmol/L (98-107); SODIUM,NA 140 mmol/L (136-145)
[2022-04-25] MEDS ORDERED: Ketorolac 30 MG/ML SDV IM ONE (20:36)
[2022-04-25 20:54] VITALS: BP 136/62; PULSE 67
== END 2022-04-25 20:54 | disposition home or self-care (01) ==
LOC: DL.ED 18:27
DX: G89.29 Other chronic pain (principal); M25.511 Pain in right shoulder; J44.9 Chronic obstructive pulmonary disease, unspecified; E78.00 Pure hypercholesterolemia, unspecified; I10 Essential (primary) hypertension; E11.9 Type 2 diabetes mellitus without complications; Z91.09 Other allergy status, other than to drugs and biological substances; Z79.82 Long term (current) use of aspirin; Z79.4 Long term (current) use of insulin; Z79.899 Other long term (current) drug therapy
CPT/HCPCS: 36415; 73030-RT; 80053; 85025; 96372; 99283; J1885

== ENCOUNTER 2022-05-02 21:53 | Emergency (ER) | payer MEDICAID ==
[2022-05-02 22:46] LABS: ANION GAP 11.8 mEq/L (7-13); CHLORIDE,CL 105 mmol/L (98-107); SODIUM,NA 137 mmol/L (136-145)
[2022-05-02] MEDS ORDERED: Piperacillin/Tazobactam 3.375 GM in Sodium Chloride 0.9% 100 ML IV ONE (22:47)
[2022-05-02 22:48] LABS: ESTIMATED GFR 101 mL/min (>=60)
[2022-05-02] MEDS ORDERED: Iopamidol 612 MG/ML 100 ML Bottle IVPUSH ONE (22:57)
[2022-05-02] MEDS ORDERED: Sodium Chloride 0.9% 100 ML ONE (22:57)
[2022-05-02 22:58] LABS: CORONAVIRUS COVID-19 NAA NEGATIVE (NEGATIVE)
[2022-05-02 23:26] LABS: AMPHETAMINES,URINE NEGATIVE (NEGATIVE); BARBITURATES,URINE NEGATIVE (NEGATIVE); BENZODIAZEPINE,URINE NEGATIVE (NEGATIVE); MDMA (ECSTASY), URINE NEGATIVE (NEGATIVE); METHADONE,URINE NEGATIVE (NEGATIVE); METHAMPHETAMINES,URINE NEGATIVE (NEGATIVE); OPIATES,URINE NEGATIVE (NEGATIVE); OXYCODONE,URINE NEGATIVE (NEGATIVE); PHENCYCLIDINE,URINE NEGATIVE (NEGATIVE); TCA,URINE NEGATIVE (NEGATIVE)
[2022-05-03 02:47] VITALS: BP 118/60; PULSE 82
== END 2022-05-03 03:26 ==
LOC: DL.ED 21:53
DX: K70.31 Alcoholic cirrhosis of liver with ascites (principal); J18.9 Pneumonia, unspecified organism; I85.00 Esophageal varices without bleeding; R11.2 Nausea with vomiting, unspecified; D69.6 Thrombocytopenia, unspecified; E11.9 Type 2 diabetes mellitus without complications; J44.9 Chronic obstructive pulmonary disease, unspecified; Z79.82 Long term (current) use of aspirin; Z79.02 Long term (current) use of antithrombotics/antiplatelets; Z79.899 Other long term (current) drug therapy; Z79.4 Long term (current) use of insulin; Z20.822 Contact with and (suspected) exposure to COVID-19
CPT/HCPCS: 0240U; 36415; 71260; 74177; 80053; 80305-QW; 80307; 81003; 82140; 82150; 83605; 83690; 83735; 83880; 84484; 85025; 85610; 87040; 93005; 93010; 96365; 99284; 99285-25; J2543; Q9967

== ENCOUNTER 2023-01-20 18:52 | Emergency (ER) | payer MEDICAID ==
[2023-01-20 19:03] VITALS: BP 138/77; PULSE 84
== END 2023-01-20 20:46 | disposition home or self-care (01) ==
LOC: DL.ED 18:52
DX: G89.4 Chronic pain syndrome (principal); M25.511 Pain in right shoulder; M25.512 Pain in left shoulder; E11.9 Type 2 diabetes mellitus without complications; I10 Essential (primary) hypertension; J44.9 Chronic obstructive pulmonary disease, unspecified; E78.00 Pure hypercholesterolemia, unspecified; Z79.82 Long term (current) use of aspirin; Z79.84 Long term (current) use of oral hypoglycemic drugs; Z79.4 Long term (current) use of insulin; Z79.899 Other long term (current) drug therapy
CPT/HCPCS: 99282; 99283

== ENCOUNTER 2023-02-11 10:08 | Inpatient (IN) | payer MEDICAID ==
[2023-02-11] MEDS ORDERED: Sodium Chloride 0.9% 10 ML Syringe FLUSH PRN (10:26)
[2023-02-11 10:59] LABS: ANION GAP 14.4 mEq/L (7-13); CHLORIDE,CL 110 mmol/L (98-107); SODIUM,NA 145 mmol/L (136-145)
[2023-02-11 11:00] LABS: ESTIMATED GFR 99 mL/min (>=60)
[2023-02-11] MEDS: Lactulose Soln 10 GM/15 ML 30 ML UD Cup PO ONE ×2 (11:53→12:02)
[2023-02-11 12:35] VITALS: BP 151/90; PULSE 117
[2023-02-11] MEDS ORDERED: Metoprolol Tartrate 5 MG/5 ML SDV IVPUSH PRN (12:45)
[2023-02-11] MEDS ORDERED: hydrALAZINE 20 MG/ML SDV IVPUSH PRN (12:45)
[2023-02-11] MEDS ORDERED: Rifaximin 550 MG Tab PO ONE (12:47)
[2023-02-11] MEDS ORDERED: Ketorolac 30 MG/ML SDV IVPUSH PRN (12:48)
[2023-02-11] MEDS ORDERED: Acetaminophen/HYDROcodone 325-5 MG Tab PO PRN (12:48)
[2023-02-11] MEDS ORDERED: Acetaminophen 325 MG Tab PO PRN (12:48)
[2023-02-11] MEDS ORDERED: Albuterol/Ipratropium 3.0-0.5 MG/3 ML Neb Soln NEB PRN (12:51)
[2023-02-11] MEDS ORDERED: Ondansetron 4 MG/2 ML SDV IVPUSH PRN (12:51)
[2023-02-11] MEDS ORDERED: 50% Dextrose in Water 50 ML Syringe IVPUSH PRN (12:54)
[2023-02-11] MEDS ORDERED: Glucagon,Human Recombinant 1 MG Vial IM PRN (12:54)
[2023-02-11] MEDS ORDERED: Magnesium Sulfate/Water 2 GM in Premix Bag 1 BAG IV ONE (12:55)
[2023-02-11] MEDS ORDERED: Lactulose Soln 10 GM/15 ML 30 ML UD Cup PO SCH (13:00)
[2023-02-11] MEDS ORDERED: Insulin Lispro 100 Units/ML 3 ML Vial SUBCUT SCH (17:00)
[2023-02-11] MEDS ORDERED: Potassium Chloride 10 MEQ Tab.ER PO ONE (17:00)
[2023-02-11] MEDS ORDERED: Folic Acid 1 MG Tab PO SCH (21:00)
[2023-02-11] MEDS ORDERED: Rifaximin 550 MG Tab PO SCH (21:00)
[2023-02-11] MEDS ORDERED: Multivitamin Tab PO SCH (21:00)
[2023-02-11] MEDS ORDERED: Thiamine 100 MG Tab PO SCH (21:00)
== END 2023-02-11 14:08 | disposition left against medical advice (07) | DRG 443 ==
LOC: DL.ED 10:08 → DL.MS 11:49
PROVIDERS: ADMIT Internal Medicine; ATTEND Internal Medicine
DX: K76.82 Hepatic encephalopathy (principal); E78.00 Pure hypercholesterolemia, unspecified; I10 Essential (primary) hypertension; H10.409 Unspecified chronic conjunctivitis, unspecified eye; J44.9 Chronic obstructive pulmonary disease, unspecified; K74.60 Unspecified cirrhosis of liver; F41.9 Anxiety disorder, unspecified; E11.9 Type 2 diabetes mellitus without complications; Z79.4 Long term (current) use of insulin; Z79.82 Long term (current) use of aspirin; Z79.899 Other long term (current) drug therapy; Z98.890 Other specified postprocedural states
CPT/HCPCS: 36415; 70450; 71045; 80053; 80307; 82140; 85025; 85610; 99285; A9270-GY; J3490

== ENCOUNTER 2023-02-11 18:26 | Emergency (ER) | payer MEDICAID ==
[2023-02-11 18:26] VITALS: BP 147/78; PULSE 92
== END 2023-02-11 19:00 ==
LOC: DL.ED 18:26
DX: K76.82 Hepatic encephalopathy (principal); E78.00 Pure hypercholesterolemia, unspecified; I10 Essential (primary) hypertension; J44.9 Chronic obstructive pulmonary disease, unspecified; E11.9 Type 2 diabetes mellitus without complications; Z79.82 Long term (current) use of aspirin; Z79.4 Long term (current) use of insulin; Z79.02 Long term (current) use of antithrombotics/antiplatelets; Z79.899 Other long term (current) drug therapy
CPT/HCPCS: 99284; 99285

== ENCOUNTER 2023-04-04 21:05 | Inpatient (IN) | payer MEDICAID ==
[2023-04-04 21:06] LABS: BASOPHILS PERCENT AUTO 0.1 % (0.0-1.0); HEMATOCRIT 37.2 % (40.0-54.0); HEMOGLOBIN 12.7 g/dL (14.0-18.0); LYMPHOCYTES PERCENT AUTO 5.7 % (20.5-50.1); MEAN CORPUSCULAR HEMOGLOBIN 33.8 pg (27.0-34.0); MEAN CORPUSCULAR HGB CONC 34.1 g/dL (33.0-35.0); MEAN CORPUSCULAR VOLUME 98.9 fL (80-100); MONOCYTES PERCENT AUTO 7.1 % (2-8); NEUTROPHILS PERCENT AUTO 87.1 % (42.2-75.2); PLATELET COUNT,PLT 53 10^3/uL (150-450); RED BLOOD CELL COUNT 3.76 10^6/uL (4.6-6.2); WHITE BLOOD CELL COUNT,WBC 19.4 10^3/uL (5.0-10.0)
[2023-04-04 21:38] LABS: ALANINE AMINOTRANSFERASE,ALT 28 U/L (16-63); ALBUMIN 2.1 g/dL (3.4-5.0); ALKALINE PHOSPHATASE 90 U/L (46-116); ANION GAP 15.6 mEq/L (7-13); ASPARTATE AMNIOTRANSFERASE,AST 44 U/L (15-37); BILIRUBIN TOTAL 3.2 mg/dL (0.2-1.0); BLOOD UREA NITROGEN,BUN 16 mg/dL (7-18); BUN/CREATININE RATIO 14.8 (No establ ref range); CALCIUM 7.8 mg/dL (8.5-10.1); CARBON DIOXIDE,CO2 21 mmol/L (21-32); CHLORIDE,CL 105 mmol/L (98-107); CREATININE 1.08 mg/dL (0.70-1.30); EST CRCL DRUG DOSING (CG) 70.37 mL/min; GLUCOSE RANDOM 113 mg/dL (70-99); POTASSIUM,K 3.6 mmol/L (3.5-5.1); SODIUM,NA 138 mmol/L (136-145)
[2023-04-04 21:40] LABS: A/G RATIO 0.43; ESTIMATED GFR 79 mL/min (>=60)
[2023-04-04 21:41] LABS: ETHANOL BLOOD MEDICAL < 3 mg/dL (0)
[2023-04-04] MEDS ORDERED: Sodium Chloride 0.9% 1,000 ML IV SCH (21:45)
[2023-04-04] MEDS ORDERED: cefTRIAXone 1 GM Vial IVPUSH ONE (21:48)
[2023-04-04] MEDS ORDERED: Azithromycin 500 MG in Sodium Chloride 0.9% 250 ML IV ONE (21:49)
[2023-04-04] MEDS ORDERED: Acetaminophen 500 MG Tab PO ONE (21:52)
[2023-04-04] MEDS ORDERED: Albuterol/Ipratropium 3.0-0.5 MG/3 ML Neb Soln NEB PRN (22:37)
[2023-04-04] MEDS ORDERED: Metoprolol Tartrate 5 MG/5 ML SDV IVPUSH PRN (22:41)
[2023-04-04] MEDS ORDERED: hydrALAZINE 20 MG/ML SDV IVPUSH PRN (22:41)
[2023-04-04] MEDS ORDERED: QUEtiapine 25 MG Tab PO PRN (22:44)
[2023-04-04 22:48] LABS: INR 1.5 (0.9-1.2); PROTHROMBIN TIME 15.3 SEC (9.0-12.0)
[2023-04-04] MEDS ORDERED: Midodrine 2.5 MG Tab PO PRN (22:54)
[2023-04-04] MEDS ORDERED: Glucagon,Human Recombinant 1 MG Vial IM PRN (22:56)
[2023-04-04] MEDS ORDERED: 50% Dextrose in Water 50 ML Syringe IVPUSH PRN (22:56)
[2023-04-04] MEDS: Piperacillin/Tazobactam 3.375 GM in Sodium Chloride 0.9% 100 ML IV SCH (23:53)
[2023-04-05 01:33] LABS: LACTIC ACID 6.1 mmol/L (0.4-2.0)
[2023-04-05] MEDS: Acetaminophen 325 MG Tab PO PRN (04:24)
[2023-04-05] MEDS: Piperacillin/Tazobactam 3.375 GM in Sodium Chloride 0.9% 100 ML IV SCH ×3 (05:03→17:59)
[2023-04-05] MEDS: Ondansetron 4 MG/2 ML SDV IVPUSH PRN ×2 (05:03→11:13)
[2023-04-05 06:43] LABS: HEMOGLOBIN 11.8 g/dL (14.0-18.0); MEAN CORPUSCULAR HGB CONC 33.7 g/dL (33.0-35.0); MEAN CORPUSCULAR VOLUME 100.9 fL (80-100); RED BLOOD CELL COUNT 3.47 10^6/uL (4.6-6.2); WHITE BLOOD CELL COUNT,WBC 15.2 10^3/uL (5.0-10.0)
[2023-04-05 06:54] LABS: BASOPHILS PERCENT AUTO 0.1 % (0.0-1.0); LYMPHOCYTES PERCENT AUTO 4.6 % (20.5-50.1); MONOCYTES PERCENT AUTO 6.6 % (2-8); NEUTROPHILS PERCENT AUTO 88.7 % (42.2-75.2); PLATELET COUNT,PLT 45 10^3/uL (150-450)
[2023-04-05 07:18] LABS: ALBUMIN 1.8 g/dL (3.4-5.0); ANION GAP 16.6 mEq/L (7-13); BILIRUBIN TOTAL 3.7 mg/dL (0.2-1.0); BUN/CREATININE RATIO 15.4 (No establ ref range); CALCIUM 7.3 mg/dL (8.5-10.1); CREATININE 1.17 mg/dL (0.70-1.30); EST CRCL DRUG DOSING (CG) 64.96 mL/min; MAGNESIUM 1.2 mg/dL (1.8-2.4); POTASSIUM,K 3.6 mmol/L (3.5-5.1)
[2023-04-05 07:19] LABS: A/G RATIO 0.43; C-REACTIVE PROTEIN 12.3 mg/dL (0.0-0.9)
[2023-04-05 07:33] LABS: BAND PERCENT MAN 13 %; LYMPHOCYTES PERCENT MAN 13 % (20-50); MONOCYTES PERCENT MAN 6 % (2-8); SEG NEUTROPHILS PERCENT MAN 68 % (42-75)
[2023-04-05] MEDS ORDERED: Insulin Lispro 100 Units/ML 3 ML Vial SUBCUT SCH (08:00)
[2023-04-05] MEDS ORDERED: Magnesium Sulfate/Water 2 GM in Premix Bag 1 BAG IV ONE (08:01)
[2023-04-05] MEDS ORDERED: guaiFENesin 600 MG Tab.ER PO SCH (09:00)
[2023-04-05] MEDS: Lactated Ringers 1,000 ML IV SCH ×2 (10:16→12:42)
[2023-04-05] MEDS: Saccharomyces Boulardii (Probiotic) 250 MG Cap PO SCH ×2 (10:19→21:13)
[2023-04-05] MEDS: Sodium Chloride 0.9% 10 ML Syringe FLUSH SCH ×2 (11:16→21:25)
[2023-04-05] MEDS: Albumin 25% 12.5 GM in Premix Bag 1 BAG IV SCH ×3 (11:26→21:17)
[2023-04-05] MEDS ORDERED: Fluconazole/Normal Saline 200 MG in Premix Bag 1 BAG IV ONE (12:04)
[2023-04-05] MEDS ORDERED: guaiFENesin/Dextromethorphan 100-10 MG/5 ML Soln 5 ML Cup PO PRN (12:09)
[2023-04-05] MEDS: Insulin Lispro 100 Units/ML 3 ML Vial SUBCUT SCH ×2 (12:47→17:56)
[2023-04-05] MEDS: Hydrocortisone Sodium Succinate 100 MG/2 ML SDV IVPUSH SCH ×2 (12:56→17:58)
[2023-04-05 20:56] LABS: ALBUMIN 2.3 g/dL (3.4-5.0); ANION GAP 11.2 mEq/L (7-13); BILIRUBIN TOTAL 3.7 mg/dL (0.2-1.0); BUN/CREATININE RATIO 18.6 (No establ ref range); CALCIUM 7.7 mg/dL (8.5-10.1); CREATININE 0.97 mg/dL (0.70-1.30); EST CRCL DRUG DOSING (CG) 78.35 mL/min; POTASSIUM,K 4.2 mmol/L (3.5-5.1); PROTEIN TOTAL,TP 6.4 g/dL (6.4-8.2)
[2023-04-05 21:01] LABS: A/G RATIO 0.56
[2023-04-05] MEDS: Oseltamivir 75 MG Cap PO SCH (21:13)
[2023-04-05] MEDS: Magnesium Oxide 400 MG Tab PO SCH (21:13)
[2023-04-05] MEDS: Rifaximin 550 MG Tab PO SCH (21:13)
[2023-04-05] MEDS: guaiFENesin 600 MG Tab.ER PO SCH (21:13)
[2023-04-06] MEDS: Hydrocortisone Sodium Succinate 100 MG/2 ML SDV IVPUSH SCH ×4 (00:35→17:31)
[2023-04-06] MEDS: Piperacillin/Tazobactam 3.375 GM in Sodium Chloride 0.9% 100 ML IV SCH ×4 (00:35→17:26)
[2023-04-06] MEDS: Insulin Lispro 100 Units/ML 3 ML Vial SUBCUT SCH ×4 (00:54→17:49)
[2023-04-06] MEDS: Levothyroxine 25 MCG Tab PO SCH (05:48)
[2023-04-06] MEDS: HYDROmorphone 0.5 MG/0.5 ML Syringe IVPUSH PRN (06:04)
[2023-04-06 06:42] LABS: BASOPHILS PERCENT AUTO 0.1 % (0.0-1.0); HEMOGLOBIN 11.2 g/dL (14.0-18.0); MEAN CORPUSCULAR HEMOGLOBIN 33.9 pg (27.0-34.0); MEAN CORPUSCULAR HGB CONC 33.9 g/dL (33.0-35.0); MONOCYTES PERCENT AUTO 4.8 % (2-8); NEUTROPHILS PERCENT AUTO 88.1 % (42.2-75.2); WHITE BLOOD CELL COUNT,WBC 12.8 10^3/uL (5.0-10.0)
[2023-04-06 06:45] LABS: PLATELET COUNT,PLT 48 10^3/uL (150-450)
[2023-04-06 07:14] LABS: ALBUMIN 2.2 g/dL (3.4-5.0); ANION GAP 10.9 mEq/L (7-13); BILIRUBIN TOTAL 3.3 mg/dL (0.2-1.0); BUN/CREATININE RATIO 21.6 (No establ ref range); CALCIUM 7.6 mg/dL (8.5-10.1); CREATININE 0.88 mg/dL (0.70-1.30); EST CRCL DRUG DOSING (CG) 86.36 mL/min; MAGNESIUM 2.1 mg/dL (1.8-2.4); POTASSIUM,K 3.9 mmol/L (3.5-5.1); PROTEIN TOTAL,TP 6.2 g/dL (6.4-8.2)
[2023-04-06 07:15] LABS: A/G RATIO 0.55; C-REACTIVE PROTEIN 14.4 mg/dL (0.0-0.9)
[2023-04-06] MEDS: Pantoprazole 40 MG Tab.CR PO SCH (09:05)
[2023-04-06] MEDS: Rifaximin 550 MG Tab PO SCH ×2 (09:06→21:16)
[2023-04-06] MEDS: Ascorbic Acid 500 MG Tab PO SCH (09:06)
[2023-04-06] MEDS: Ferrous Sulfate 325 MG Tab PO SCH (09:06)
[2023-04-06] MEDS: Oseltamivir 75 MG Cap PO SCH ×2 (09:06→21:12)
[2023-04-06] MEDS: Thiamine 100 MG Tab PO SCH (09:07)
[2023-04-06] MEDS: Saccharomyces Boulardii (Probiotic) 250 MG Cap PO SCH ×2 (09:07→21:12)
[2023-04-06] MEDS: guaiFENesin 600 MG Tab.ER PO SCH ×2 (09:07→21:12)
[2023-04-06] MEDS: Magnesium Oxide 400 MG Tab PO SCH ×2 (09:07→21:12)
[2023-04-06] MEDS: Sodium Chloride 0.9% 10 ML Syringe FLUSH SCH ×2 (09:08→21:16)
[2023-04-06] MEDS: Fluconazole/Normal Saline 100 MG in Premix Bag 1 BAG IV SCH ×2 (12:12→12:37)
[2023-04-06] MEDS: Acetaminophen 325 MG Tab PO PRN (21:12)
[2023-04-07] MEDS: HYDROmorphone 0.5 MG/0.5 ML Syringe IVPUSH PRN (00:05)
[2023-04-07] MEDS: Hydrocortisone Sodium Succinate 100 MG/2 ML SDV IVPUSH SCH ×4 (00:06→17:26)
[2023-04-07] MEDS: Piperacillin/Tazobactam 3.375 GM in Sodium Chloride 0.9% 100 ML IV SCH ×4 (00:08→17:33)
[2023-04-07] MEDS: Levothyroxine 25 MCG Tab PO SCH (05:27)
[2023-04-07] MEDS ORDERED: Insulin Lispro 100 Units/ML 3 ML Vial SUBCUT SCH (06:00)
[2023-04-07 06:22] LABS: HEMATOCRIT 33.8 % (40.0-54.0); HEMOGLOBIN 11.3 g/dL (14.0-18.0); LYMPHOCYTES PERCENT AUTO 9.8 % (20.5-50.1); MEAN CORPUSCULAR HEMOGLOBIN 33.6 pg (27.0-34.0); MEAN CORPUSCULAR HGB CONC 33.4 g/dL (33.0-35.0); MEAN CORPUSCULAR VOLUME 100.6 fL (80-100); MONOCYTES PERCENT AUTO 4.4 % (2-8); NEUTROPHILS PERCENT AUTO 85.8 % (42.2-75.2); RED BLOOD CELL COUNT 3.36 10^6/uL (4.6-6.2); WHITE BLOOD CELL COUNT,WBC 8.4 10^3/uL (5.0-10.0)
[2023-04-07 06:30] LABS: PLATELET COUNT,PLT 46 10^3/uL (150-450)
[2023-04-07 06:48] LABS: ALBUMIN 2.1 g/dL (3.4-5.0); BILIRUBIN TOTAL 1.8 mg/dL (0.2-1.0); BUN/CREATININE RATIO 28.9 (No establ ref range); C-REACTIVE PROTEIN 8.4 mg/dL (0.0-0.9); CALCIUM 7.6 mg/dL (8.5-10.1); CREATININE 0.76 mg/dL (0.70-1.30); MAGNESIUM 2.1 mg/dL (1.8-2.4)
[2023-04-07 06:55] LABS: A/G RATIO 0.54
[2023-04-07] MEDS: Insulin Lispro 100 Units/ML 3 ML Vial SUBCUT SCH ×3 (08:59→17:24)
[2023-04-07] MEDS: Rifaximin 550 MG Tab PO SCH ×2 (09:03→20:55)
[2023-04-07] MEDS: Saccharomyces Boulardii (Probiotic) 250 MG Cap PO SCH ×2 (09:03→20:55)
[2023-04-07] MEDS: Oseltamivir 75 MG Cap PO SCH ×2 (09:03→20:55)
[2023-04-07] MEDS: Thiamine 100 MG Tab PO SCH (09:03)
[2023-04-07] MEDS: guaiFENesin 600 MG Tab.ER PO SCH ×2 (09:04→20:55)
[2023-04-07] MEDS: Ascorbic Acid 500 MG Tab PO SCH (09:04)
[2023-04-07] MEDS: Pantoprazole 40 MG Tab.CR PO SCH (09:05)
[2023-04-07] MEDS: Ferrous Sulfate 325 MG Tab PO SCH (09:05)
[2023-04-07] MEDS: Magnesium Oxide 400 MG Tab PO SCH ×2 (09:05→20:55)
[2023-04-07] MEDS: Acetaminophen 325 MG Tab PO PRN (09:05)
[2023-04-07] MEDS: Sodium Chloride 0.9% 10 ML Syringe FLUSH SCH ×2 (09:06→20:56)
[2023-04-07] MEDS: Fluconazole/Normal Saline 100 MG in Premix Bag 1 BAG IV SCH (12:12)
[2023-04-07] MEDS: Sodium Chloride 0.9% 10 ML Syringe FLUSH PRN ×2 (17:27→20:56)
[2023-04-07] MEDS ORDERED: Ketorolac 30 MG/ML SDV IVPUSH PRN (19:35)
[2023-04-07] MEDS ORDERED: Gabapentin 300 MG Cap PO SCH (21:00)
[2023-04-08] MEDS: Piperacillin/Tazobactam 3.375 GM in Sodium Chloride 0.9% 100 ML IV SCH ×3 (00:14→11:22)
[2023-04-08] MEDS: Hydrocortisone Sodium Succinate 100 MG/2 ML SDV IVPUSH SCH ×3 (00:14→11:18)
[2023-04-08] MEDS: Sodium Chloride 0.9% 10 ML Syringe FLUSH PRN (00:15)
[2023-04-08] MEDS: HYDROmorphone 0.5 MG/0.5 ML Syringe IVPUSH PRN (01:06)
[2023-04-08] MEDS: Levothyroxine 25 MCG Tab PO SCH (06:02)
[2023-04-08 06:06] LABS: HEMATOCRIT 33.1 % (40.0-54.0); HEMOGLOBIN 11.1 g/dL (14.0-18.0); LYMPHOCYTES PERCENT AUTO 13.2 % (20.5-50.1); MEAN CORPUSCULAR HEMOGLOBIN 33.6 pg (27.0-34.0); MEAN CORPUSCULAR HGB CONC 33.5 g/dL (33.0-35.0); MEAN CORPUSCULAR VOLUME 100.3 fL (80-100); MONOCYTES PERCENT AUTO 7.1 % (2-8); NEUTROPHILS PERCENT AUTO 79.7 % (42.2-75.2); WHITE BLOOD CELL COUNT,WBC 5.4 10^3/uL (5.0-10.0)
[2023-04-08 06:14] LABS: PLATELET COUNT,PLT 45 10^3/uL (150-450)
[2023-04-08 06:31] LABS: ALBUMIN 1.8 g/dL (3.4-5.0); BILIRUBIN TOTAL 1.4 mg/dL (0.2-1.0); BUN/CREATININE RATIO 27.3 (No establ ref range); C-REACTIVE PROTEIN 4.7 mg/dL (0.0-0.9); CALCIUM 7.4 mg/dL (8.5-10.1); CREATININE 0.77 mg/dL (0.70-1.30); EST CRCL DRUG DOSING (CG) 98.7 mL/min; PROTEIN TOTAL,TP 5.5 g/dL (6.4-8.2)
[2023-04-08 06:32] LABS: A/G RATIO 0.49
[2023-04-08] MEDS: Insulin Lispro 100 Units/ML 3 ML Vial SUBCUT SCH ×2 (08:33→12:29)
[2023-04-08] MEDS: Thiamine 100 MG Tab PO SCH (08:54)
[2023-04-08] MEDS: Ferrous Sulfate 325 MG Tab PO SCH (08:54)
[2023-04-08] MEDS: Saccharomyces Boulardii (Probiotic) 250 MG Cap PO SCH (08:54)
[2023-04-08] MEDS: Ascorbic Acid 500 MG Tab PO SCH (08:54)
[2023-04-08] MEDS: guaiFENesin 600 MG Tab.ER PO SCH (08:55)
[2023-04-08] MEDS: Rifaximin 550 MG Tab PO SCH (08:55)
[2023-04-08] MEDS: Magnesium Oxide 400 MG Tab PO SCH (08:55)
[2023-04-08] MEDS: Pantoprazole 40 MG Tab.CR PO SCH (08:55)
[2023-04-08] MEDS: Sodium Chloride 0.9% 10 ML Syringe FLUSH SCH (08:57)
[2023-04-08] MEDS ORDERED: Gabapentin 100 MG Cap PO SCH (09:00)
[2023-04-08] MEDS: Oseltamivir 75 MG Cap PO SCH (09:07)
[2023-04-08 09:47] LABS: HEMATOCRIT 35.6 % (40.0-54.0); HEMOGLOBIN 11.8 g/dL (14.0-18.0); MEAN CORPUSCULAR HEMOGLOBIN 33.3 pg (27.0-34.0); MEAN CORPUSCULAR HGB CONC 33.1 g/dL (33.0-35.0); MEAN CORPUSCULAR VOLUME 100.6 fL (80-100); RED BLOOD CELL COUNT 3.54 10^6/uL (4.6-6.2); WHITE BLOOD CELL COUNT,WBC 4.8 10^3/uL (5.0-10.0)
[2023-04-08 10:06] LABS: PLATELET COUNT,PLT 44 10^3/uL (150-450)
[2023-04-08 10:08] LABS: ALBUMIN 1.9 g/dL (3.4-5.0); ANION GAP 12.8 mEq/L (7-13); BILIRUBIN TOTAL 1.5 mg/dL (0.2-1.0); C-REACTIVE PROTEIN 4.4 mg/dL (0.0-0.9); CALCIUM 7.4 mg/dL (8.5-10.1); CREATININE 0.96 mg/dL (0.70-1.30); EST CRCL DRUG DOSING (CG) 79.17 mL/min; POTASSIUM,K 3.8 mmol/L (3.5-5.1); PROTEIN TOTAL,TP 5.8 g/dL (6.4-8.2)
[2023-04-08 10:09] LABS: A/G RATIO 0.49
[2023-04-08 10:53] LABS: ANISOCYTOSIS 1+ SLIGHT; BAND PERCENT MAN 9 %; HYPOCHROMASIA 2+ MODERATE; LYMPHOCYTES PERCENT MAN 13 % (20-50); MONOCYTES PERCENT MAN 6 % (2-8); SEG NEUTROPHILS PERCENT MAN 72 % (42-75)
[2023-04-08] MEDS: Fluconazole/Normal Saline 100 MG in Premix Bag 1 BAG IV SCH (11:21)
[2023-04-08] MEDS ORDERED: Oseltamivir 75 MG Cap ONE (12:15)
[2023-04-08 12:33] VITALS: BP 112/71; PULSE 61
[2023-04-08] MEDS ORDERED: Oseltamivir 75 MG Cap PO ONE (12:59)
== END 2023-04-08 13:00 | disposition home or self-care (01) | DRG 871 ==
LOC: DL.ED 21:05 → DL.MS 22:06
PROVIDERS: ADMIT Internal Medicine; ATTEND Internal Medicine
DX: A41.9 Sepsis, unspecified organism (principal); E43 Unspecified severe protein-calorie malnutrition; J69.0 Pneumonitis due to inhalation of food and vomit; J18.9 Pneumonia, unspecified organism; E87.20 Acidosis, unspecified; H54.7 Unspecified visual loss; E11.9 Type 2 diabetes mellitus without complications; J44.9 Chronic obstructive pulmonary disease, unspecified; E78.5 Hyperlipidemia, unspecified; K70.30 Alcoholic cirrhosis of liver without ascites; I10 Essential (primary) hypertension; J30.2 Other seasonal allergic rhinitis; F41.9 Anxiety disorder, unspecified; J10.1 Influenza due to other identified influenza virus with other respiratory manifestations; D50.9 Iron deficiency anemia, unspecified; D69.6 Thrombocytopenia, unspecified; E11.65 Type 2 diabetes mellitus with hyperglycemia; E83.42 Hypomagnesemia; Z20.822 Contact with and (suspected) exposure to COVID-19; E78.00 Pure hypercholesterolemia, unspecified; Z79.4 Long term (current) use of insulin; Z79.02 Long term (current) use of antithrombotics/antiplatelets; Z79.82 Long term (current) use of aspirin; Z68.26 Body mass index [BMI] 26.0-26.9, adult; Z79.899 Other long term (current) drug therapy
CPT/HCPCS: 36415; 71045; 80053; 80307; 83605; 85025; 85610; 85651; 85730; 86140; 87040 ×2; 87635; 87804 ×2; A9270; J0456; J0696; J7030; J7050; 80202; 82533; 82947; 83735; 84145; 84484; 87070; 87205; 93005; J1170; J1450; J1720; J1815-GY; J1885; J2405; J2543; J3370; J3475; J3490; J7120; P9047; U0002

== ENCOUNTER 2023-04-12 12:48 | Emergency (ER) | payer MEDICAID ==
[2023-04-12 13:40] LABS: BASOPHILS PERCENT AUTO 0.2 % (0.0-1.0); HEMATOCRIT 38.3 % (40.0-54.0); HEMOGLOBIN 12.8 g/dL (14.0-18.0); LYMPHOCYTES PERCENT AUTO 17.6 % (20.5-50.1); MEAN CORPUSCULAR HEMOGLOBIN 33.2 pg (27.0-34.0); MEAN CORPUSCULAR HGB CONC 33.4 g/dL (33.0-35.0); MEAN CORPUSCULAR VOLUME 99.2 fL (80-100); MONOCYTES PERCENT AUTO 9.2 % (2-8); PLATELET COUNT,PLT 76 10^3/uL (150-450); RED BLOOD CELL COUNT 3.86 10^6/uL (4.6-6.2); WHITE BLOOD CELL COUNT,WBC 6.3 10^3/uL (5.0-10.0)
[2023-04-12 13:59] LABS: ALBUMIN 2.2 g/dL (3.4-5.0); ANION GAP 7.2 mEq/L (7-13); BILIRUBIN TOTAL 3.2 mg/dL (0.2-1.0); BUN/CREATININE RATIO 15.4 (No establ ref range); C-REACTIVE PROTEIN 1.8 mg/dL (0.0-0.9); CALCIUM 7.6 mg/dL (8.5-10.1); CREATININE 0.78 mg/dL (0.70-1.30); EST CRCL DRUG DOSING (CG) 71.23 mL/min; POTASSIUM,K 3.2 mmol/L (3.5-5.1)
[2023-04-12 14:00] LABS: A/G RATIO 0.58
[2023-04-12 14:03] LABS: LACTIC ACID 1.9 mmol/L (0.4-2.0)
[2023-04-12] MEDS ORDERED: Ketorolac 30 MG/ML SDV IM ONE (14:09)
[2023-04-12] MEDS ORDERED: Potassium Chloride 10 MEQ Tab.ER PO ONE (14:09)
[2023-04-12 14:18] VITALS: BP 146/75; PULSE 60
== END 2023-04-12 14:22 | disposition home or self-care (01) ==
LOC: DL.ED 12:48
DX: R14.0 Abdominal distension (gaseous) (principal); E78.00 Pure hypercholesterolemia, unspecified; I10 Essential (primary) hypertension; J44.9 Chronic obstructive pulmonary disease, unspecified; E11.9 Type 2 diabetes mellitus without complications; Z87.891 Personal history of nicotine dependence; Z79.82 Long term (current) use of aspirin; Z79.899 Other long term (current) drug therapy; Z79.02 Long term (current) use of antithrombotics/antiplatelets
CPT/HCPCS: 36415; 80053; 83605; 85025; 86140; 96372; 99284; A9270; J1885

== ENCOUNTER 2024-07-14 18:18 | Emergency (ER) | payer MEDICARE ==
[2024-07-14] MEDS: Sodium Chloride 0.9% 1,000 ML IV ONE (18:35)
[2024-07-14] MEDS: Sodium Chloride 0.9% 10 ML Syringe FLUSH PRN (18:35)
[2024-07-14] MEDS: Ketorolac 30 MG/ML SDV IVPUSH ONE (18:35)
[2024-07-14 18:43] LABS: BASOPHILS PERCENT AUTO 0.2 % (0.0-1.0); EOSINOPHILS PERCENT AUTO 0.2 % (1.0-3.0); HEMATOCRIT 38.8 % (40.0-54.0); HEMOGLOBIN 13.4 g/dL (14.0-18.0); LYMPHOCYTES PERCENT AUTO 17.2 % (20.5-50.1); MEAN CORPUSCULAR HEMOGLOBIN 33.3 pg (27.0-34.0); MEAN CORPUSCULAR HGB CONC 34.5 g/dL (33.0-35.0); MEAN CORPUSCULAR VOLUME 96.3 fL (80-100); MONOCYTES PERCENT AUTO 14.3 % (2-8); NEUTROPHILS PERCENT AUTO 68.1 % (42.2-75.2); PLATELET COUNT,PLT 41 10^3/uL (150-450); RED BLOOD CELL COUNT 4.03 10^6/uL (4.6-6.2); WHITE BLOOD CELL COUNT,WBC 4.1 10^3/uL (5.0-10.0)
[2024-07-14 18:59] LABS: ALANINE AMINOTRANSFERASE,ALT 23 U/L (16-63); ALBUMIN 2.4 g/dL (3.4-5.0); ALKALINE PHOSPHATASE 129 U/L (46-116); ANION GAP 11.8 mEq/L (7-13); ASPARTATE AMNIOTRANSFERASE,AST 39 U/L (15-37); BILIRUBIN TOTAL 2.7 mg/dL (0.2-1.0); BLOOD UREA NITROGEN,BUN 7 mg/dL (7-18); CALCIUM 7.9 mg/dL (8.5-10.1); CARBON DIOXIDE,CO2 22 mmol/L (21-32); CHLORIDE,CL 107 mmol/L (98-107); CREATININE 0.87 mg/dL (0.70-1.30); EST CRCL DRUG DOSING (CG) 85.17 mL/min; GLUCOSE RANDOM 111 mg/dL (70-99); MAGNESIUM 1.4 mg/dL (1.8-2.4); POTASSIUM,K 3.8 mmol/L (3.5-5.1); PROTEIN TOTAL,TP 6.7 g/dL (6.4-8.2); SODIUM,NA 137 mmol/L (136-145)
[2024-07-14 19:00] LABS: A/G RATIO 0.56; C-REACTIVE PROTEIN < 0.50 ng/dL (<=0.50); ESTIMATED GFR 98 mL/min (>=60)
[2024-07-14] MEDS: Magnesium Sulfate/Water 2 GM in Premix Bag 1 BAG IV ONE (19:17)
[2024-07-14] MEDS: Lactulose Soln 10 GM/15 ML 30 ML UD Cup PO ONE (19:19)
[2024-07-14 19:25] VITALS: BP 132/74; PULSE 81
== END 2024-07-14 20:46 | disposition home or self-care (01) ==
LOC: DL.ED 18:18
DX: U07.1 COVID-19 (principal); I10 Essential (primary) hypertension; E78.00 Pure hypercholesterolemia, unspecified; E11.9 Type 2 diabetes mellitus without complications; Z79.84 Long term (current) use of oral hypoglycemic drugs; Z79.82 Long term (current) use of aspirin; Z79.899 Other long term (current) drug therapy
CPT/HCPCS: 36415; 80053; 83605; 83735; 85025; 86140; 87040; 96361; 96365; 96375; 99283; 99284; A9270; J1885; J3475; J7030; U0002; J3490

== ENCOUNTER 2024-09-23 15:23 | Emergency (ER) | payer MEDICARE ==
[2024-09-23] MEDS: Sodium Chloride 0.9% 2,000 ML IV ONE (15:39)
[2024-09-23 15:46] VITALS: PULSE 66
[2024-09-23] MEDS: Ketorolac 30 MG/ML SDV IM ONE (16:06)
[2024-09-23 16:20] LABS: APPEARANCE,URINE CLOUDY (CLEAR); BILIRUBIN,URINE MODERATE (NEGATIVE); COLOR,URINE DARK YELLOW (YELLOW); GLUCOSE,URINE 100 (NEGATIVE); KETONES,URINE NEGATIVE (NEGATIVE); LEUKOCYTE ESTERASE,URINE SMALL (NEGATIVE); NITRITE,URINE NEGATIVE (NEGATIVE); OCCULT BLOOD,URINE SMALL (NEGATIVE); PROTEIN,URINE 30 (NEGATIVE); UROBILINOGEN,URINE >=8.0 mg/dL (0.2-1.0)
[2024-09-23] MEDS: Iopamidol 612 MG/ML 100 ML Bottle IVPUSH ONE (16:26)
[2024-09-23 16:32] VITALS: BP 103/58
[2024-09-23 16:36] LABS: WBC,URINE PACKED /HPF (0-5/HPF)
[2024-09-23 16:37] LABS: AMORPHOUS SEDIMENT,URINE FEW /HPF (NOT SEEN); BACTERIA,URINE FEW /HPF (0-FEW/HPF); EPITHELIAL CELLS,URINE FEW /HPF (NOT SEEN); MUCUS,URINE MODERATE /LPF (NOT SEEN)
== END 2024-09-23 16:52 | disposition home or self-care (01) ==
LOC: DL.ED 15:23
DX: N45.1 Epididymitis (principal); E78.00 Pure hypercholesterolemia, unspecified; I10 Essential (primary) hypertension; J44.9 Chronic obstructive pulmonary disease, unspecified; E11.9 Type 2 diabetes mellitus without complications; Z79.82 Long term (current) use of aspirin; Z79.4 Long term (current) use of insulin; Z79.84 Long term (current) use of oral hypoglycemic drugs; Z79.899 Other long term (current) drug therapy
CPT/HCPCS: 76870; 81001; 87086; 87088; 87491; 87563; 87591; 96372; 99284-25; J1885

== ENCOUNTER 2024-10-12 14:38 | Emergency (ER) | payer MEDICARE ==
[2024-10-12] MEDS: Sodium Chloride 0.9% 1,000 ML IV ONE (15:26)
[2024-10-12] MEDS: Ondansetron 4 MG/2 ML SDV IVPUSH ONE (15:29)
[2024-10-12] MEDS: Morphine 4 MG/ML Syringe IVPUSH ONE (15:30)
[2024-10-12 15:48] LABS: BASOPHILS PERCENT AUTO 0.1 % (0.0-1.0); EOSINOPHILS PERCENT AUTO 1.1 % (1.0-3.0); HEMATOCRIT 37.1 % (40.0-54.0); HEMOGLOBIN 12.8 g/dL (14.0-18.0); LYMPHOCYTES PERCENT AUTO 10.8 % (20.5-50.1); MEAN CORPUSCULAR HEMOGLOBIN 33.8 pg (27.0-34.0); MEAN CORPUSCULAR HGB CONC 34.5 g/dL (33.0-35.0); MEAN CORPUSCULAR VOLUME 97.9 fL (80-100); MONOCYTES PERCENT AUTO 11.1 % (2-8); NEUTROPHILS PERCENT AUTO 76.9 % (42.2-75.2); PLATELET COUNT,PLT 69 10^3/uL (150-450); RED BLOOD CELL COUNT 3.79 10^6/uL (4.6-6.2); WHITE BLOOD CELL COUNT,WBC 8.9 10^3/uL (5.0-10.0)
[2024-10-12 16:04] LABS: INR 1.2 (0.9-1.2); PROTHROMBIN TIME 12.4 SEC (9.0-12.0)
[2024-10-12 16:10] LABS: ALANINE AMINOTRANSFERASE,ALT 17 U/L (16-63); ALBUMIN 2.3 g/dL (3.4-5.0); ALKALINE PHOSPHATASE 118 U/L (46-116); ANION GAP 12.6 mEq/L (7-13); ASPARTATE AMNIOTRANSFERASE,AST 25 U/L (15-37); BILIRUBIN TOTAL 1.6 mg/dL (0.2-1.0); BLOOD UREA NITROGEN,BUN 7 mg/dL (7-18); BUN/CREATININE RATIO 8.2 (No establ ref range); CALCIUM 7.8 mg/dL (8.5-10.1); CARBON DIOXIDE,CO2 23 mmol/L (21-32); CHLORIDE,CL 105 mmol/L (98-107); CREATININE 0.85 mg/dL (0.70-1.30); EST CRCL DRUG DOSING (CG) 87.18 mL/min; GLUCOSE RANDOM 174 mg/dL (70-99); LIPASE 33 U/L (16-77); MAGNESIUM 1.6 mg/dL (1.8-2.4); POTASSIUM,K 3.6 mmol/L (3.5-5.1); PROTEIN TOTAL,TP 6.9 g/dL (6.4-8.2); SODIUM,NA 137 mmol/L (136-145)
[2024-10-12 16:15] LABS: ESTIMATED GFR 98 mL/min (>=60); ETHANOL BLOOD MEDICAL < 3 mg/dL (0)
[2024-10-12 16:18] LABS: LACTIC ACID 2.9 mmol/L (0.4-2.0)
[2024-10-12] MEDS ORDERED: Iopamidol 612 MG/ML 100 ML Bottle IVPUSH ONE (16:29)
[2024-10-12] MEDS: Ibuprofen 600 MG Tab PO ONE (16:31)
[2024-10-12] MEDS: Iopamidol 612 MG/ML 100 ML Bottle IVPUSH ONE (17:19)
[2024-10-12 18:29] VITALS: BP 115/62; PULSE 76
[2024-10-12] MEDS: cefTRIAXone 1 GM Vial IVPUSH ONE (18:46)
[2024-10-12] MEDS: Piperacillin/Tazobactam 4.5 GM in Sodium Chloride 0.9% 100 ML IV ONE (19:41)
[2024-10-12] MEDS: VANCOmycin 2 GM in Sodium Chloride 0.9% 500 ML IV ONE (20:17)
[2024-10-12] MEDS: Lactated Ringers 1,000 ML IV SCH (20:27)
[2024-10-12] MEDS: Acetaminophen 500 MG Tab PO ONE (20:27)
[2024-10-12 20:38] LABS: APPEARANCE,URINE CLOUDY (CLEAR); BILIRUBIN,URINE NEGATIVE (NEGATIVE); COLOR,URINE YELLOW (YELLOW); GLUCOSE,URINE NEGATIVE (NEGATIVE); KETONES,URINE NEGATIVE (NEGATIVE); LEUKOCYTE ESTERASE,URINE SMALL (NEGATIVE); NITRITE,URINE NEGATIVE (NEGATIVE); OCCULT BLOOD,URINE LARGE (NEGATIVE); PROTEIN,URINE NEGATIVE (NEGATIVE)
[2024-10-12 20:43] LABS: AMPHETAMINES,URINE NEGATIVE (NEGATIVE); BARBITURATES,URINE NEGATIVE (NEGATIVE); BENZODIAZEPINE,URINE NEGATIVE (NEGATIVE); MDMA (ECSTASY), URINE NEGATIVE (NEGATIVE); METHADONE,URINE NEGATIVE (NEGATIVE); METHAMPHETAMINES,URINE NEGATIVE (NEGATIVE); OPIATES,URINE POSITIVE (NEGATIVE); OXYCODONE,URINE NEGATIVE (NEGATIVE); PHENCYCLIDINE,URINE NEGATIVE (NEGATIVE); TCA,URINE NEGATIVE (NEGATIVE)
[2024-10-12 20:47] LABS: WBC,URINE >100 /HPF (0-5/HPF)
[2024-10-12 20:48] LABS: BACTERIA,URINE FEW /HPF (0-FEW/HPF); EPITHELIAL CELLS,URINE FEW /HPF (NOT SEEN); RBC,URINE 20-30 /HPF (0-5)
== END 2024-10-12 20:48 ==
LOC: DL.ED 14:38
DX: A41.9 Sepsis, unspecified organism (principal); N49.0 Inflammatory disorders of seminal vesicle; E87.20 Acidosis, unspecified; F17.210 Nicotine dependence, cigarettes, uncomplicated
CPT/HCPCS: 36415; 71045; 74177; 80053; 80305; 80307; 81001; 83605; 83690; 83735; 84484; 85025; 85610; 87040; 87086; 93005; 93010; 96365; 96367; 96375; 99285; A9270; J2270; J2405; J2543; J3490; J7030; J7040; J7120; Q9967

== ENCOUNTER 2024-12-10 15:03 | Emergency (ER) | payer MEDICARE ==
[2024-12-10] MEDS ORDERED: Iopamidol 612 MG/ML 100 ML Bottle IVPUSH ONE (15:11)
[2024-12-10 15:27] LABS: HEMATOCRIT 35.2 % (40.0-54.0); HEMOGLOBIN 11.8 g/dL (14.0-18.0); MEAN CORPUSCULAR HGB CONC 33.5 g/dL (33.0-35.0); MEAN CORPUSCULAR VOLUME 98.3 fL (80-100); PLATELET COUNT,PLT 66 10^3/uL (150-450); RED BLOOD CELL COUNT 3.58 10^6/uL (4.6-6.2); WHITE BLOOD CELL COUNT,WBC 6.9 10^3/uL (5.0-10.0)
[2024-12-10 15:30] LABS: BASOPHILS PERCENT AUTO 0.4 % (0.0-1.0); EOSINOPHILS PERCENT AUTO 3.2 % (1.0-3.0); LYMPHOCYTES PERCENT AUTO 32.9 % (20.5-50.1); MONOCYTES PERCENT AUTO 10.4 % (2-8); NEUTROPHILS PERCENT AUTO 53.1 % (42.2-75.2)
[2024-12-10] MEDS: Sodium Chloride 0.9% 1,000 ML IV ONE ×2 (15:39→16:25)
[2024-12-10] MEDS: Pantoprazole 40 MG Vial IVPUSH ONE (15:40)
[2024-12-10 15:45] LABS: ALANINE AMINOTRANSFERASE,ALT 27 U/L (16-63); ALBUMIN 2.3 g/dL (3.4-5.0); ALKALINE PHOSPHATASE 142 U/L (46-116); ANION GAP 14.4 mEq/L (7-13); ASPARTATE AMNIOTRANSFERASE,AST 47 U/L (15-37); BILIRUBIN TOTAL 1.8 mg/dL (0.2-1.0); BLOOD UREA NITROGEN,BUN 8 mg/dL (7-18); BUN/CREATININE RATIO 8.9 (No establ ref range); CALCIUM 7.6 mg/dL (8.5-10.1); CARBON DIOXIDE,CO2 24 mmol/L (21-32); CHLORIDE,CL 110 mmol/L (98-107); EST CRCL DRUG DOSING (CG) 82.33 mL/min; GLUCOSE RANDOM 123 mg/dL (70-99); LIPASE 45 U/L (16-77); MAGNESIUM 1.6 mg/dL (1.8-2.4); POTASSIUM,K 3.4 mmol/L (3.5-5.1); PROTEIN TOTAL,TP 6.2 g/dL (6.4-8.2); SODIUM,NA 145 mmol/L (136-145)
[2024-12-10 15:46] LABS: A/G RATIO 0.59; ESTIMATED GFR 97 mL/min (>=60); ETHANOL BLOOD MEDICAL < 3 mg/dL (0)
[2024-12-10] MEDS: Octreotide 100 MCG/ML SDV IVPUSH ONE (15:46)
[2024-12-10 15:48] LABS: INR 1.3 (0.9-1.2); PROTHROMBIN TIME 12.9 SEC (9.0-12.0)
[2024-12-10 15:50] LABS: B-TYPE NATRIURETIC PEPTIDE,BNP 15 pg/ml (0-100)
[2024-12-10] MEDS: Octreotide 100 MCG in Sodium Chloride 0.9% 99 ML IV SCH (15:50)
[2024-12-10] MEDS: cefTRIAXone 1 GM Vial IVPUSH ONE (15:56)
[2024-12-10] MEDS: Ondansetron 4 MG/2 ML SDV IVPUSH ONE (16:01)
[2024-12-10] MEDS: Magnesium Sulfate/Water Premix 2 GM in Premix Bag 1 BAG IV ONE (16:06)
[2024-12-10 16:59] VITALS: BP 120/85; PULSE 72
[2024-12-10 17:11] LABS: EOSINOPHILS PERCENT MAN 3 % (1-3); LYMPHOCYTES % ATYPICAL MANUAL 1 %; LYMPHOCYTES PERCENT MAN 32 % (20-50); MONOCYTES PERCENT MAN 11 % (2-8); SEG NEUTROPHILS PERCENT MAN 53 % (42-75)
[2024-12-10] MEDS: Ondansetron 4 MG/2 ML SDV ONE (17:13)
[2024-12-10] MEDS: Norepinephrine Bit/D5W Premix 250 ML ONE (17:51)
== END 2024-12-10 17:00 ==
LOC: DL.ED 15:03
DX: K92.2 Gastrointestinal hemorrhage, unspecified (principal); D62 Acute posthemorrhagic anemia; E83.42 Hypomagnesemia; J06.9 Acute upper respiratory infection, unspecified; E11.9 Type 2 diabetes mellitus without complications; E78.00 Pure hypercholesterolemia, unspecified; I10 Essential (primary) hypertension; Z79.82 Long term (current) use of aspirin; Z79.84 Long term (current) use of oral hypoglycemic drugs; Z79.890 Hormone replacement therapy; Z79.899 Other long term (current) drug therapy; F17.210 Nicotine dependence, cigarettes, uncomplicated
CPT/HCPCS: 36415; 36430; 80053; 80307; 82272; 82947; 83690; 83735; 83880; 84484; 85025; 85610; 86850; 86900; 86901; 86920; 86922; 87428; 93005; 93010; 96365; 96368; 96375; 96376; 99285; J0696; J2354; J2405; J2470; J3475; J7030; P9016

== ENCOUNTER 2024-12-22 18:44 | Emergency (ER) | payer MEDICARE ==
[2024-12-22 19:07] VITALS: BP 150/76; PULSE 81
[2024-12-22] MEDS: Magnesium Hydroxide 400 MG/5 ML Susp 30 ML Cup PO ONE (19:42)
== END 2024-12-22 19:54 | disposition home or self-care (01) ==
LOC: DL.ED 18:44
DX: K59.00 Constipation, unspecified (principal); I10 Essential (primary) hypertension; E78.00 Pure hypercholesterolemia, unspecified; J44.9 Chronic obstructive pulmonary disease, unspecified; E11.9 Type 2 diabetes mellitus without complications; Z79.82 Long term (current) use of aspirin; Z79.899 Other long term (current) drug therapy; Z79.84 Long term (current) use of oral hypoglycemic drugs; Z79.01 Long term (current) use of anticoagulants; Z87.891 Personal history of nicotine dependence
CPT/HCPCS: 99284; A9270

== ENCOUNTER 2024-12-26 23:33 | Emergency (ER) | payer MEDICARE ==
[2024-12-27] MEDS ORDERED: Sodium Chloride 0.9% 10 ML Syringe FLUSH PRN (00:06)
[2024-12-27] MEDS: Iopamidol 612 MG/ML 100 ML Bottle IVPUSH ONE (00:13)
[2024-12-27 00:14] LABS: BASOPHILS PERCENT AUTO 0.5 % (0.0-1.0); EOSINOPHILS PERCENT AUTO 2.9 % (1.0-3.0); HEMATOCRIT 35.1 % (40.0-54.0); HEMOGLOBIN 11.4 g/dL (14.0-18.0); LYMPHOCYTES PERCENT AUTO 25.7 % (20.5-50.1); MEAN CORPUSCULAR HEMOGLOBIN 32.8 pg (27.0-34.0); MEAN CORPUSCULAR HGB CONC 32.5 g/dL (33.0-35.0); MEAN CORPUSCULAR VOLUME 100.9 fL (80-100); MONOCYTES PERCENT AUTO 10.6 % (2-8); NEUTROPHILS PERCENT AUTO 60.3 % (42.2-75.2); PLATELET COUNT,PLT 58 10^3/uL (150-450); RED BLOOD CELL COUNT 3.48 10^6/uL (4.6-6.2); WHITE BLOOD CELL COUNT,WBC 6.3 10^3/uL (5.0-10.0)
[2024-12-27 00:30] LABS: INR 1.3 (0.9-1.2); PROTHROMBIN TIME 12.9 SEC (9.0-12.0)
[2024-12-27 00:34] LABS: A/G RATIO 0.63; ALBUMIN 2.6 g/dL (3.4-5.0); ANION GAP 15.7 mEq/L (7-13); BILIRUBIN TOTAL 2.6 mg/dL (0.2-1.0); BUN/CREATININE RATIO 7.4 (No establ ref range); C-REACTIVE PROTEIN 0.64 ng/dL (<=0.50); CALCIUM 8.2 mg/dL (8.5-10.1); CREATININE 0.68 mg/dL (0.70-1.30); EST CRCL DRUG DOSING (CG) 108.97 mL/min; MAGNESIUM 1.7 mg/dL (1.8-2.4); POTASSIUM,K 3.7 mmol/L (3.5-5.1); PROTEIN TOTAL,TP 6.7 g/dL (6.4-8.2)
[2024-12-27 00:42] LABS: LACTIC ACID 3.1 mmol/L (0.4-2.0)
[2024-12-27] MEDS: HYDROmorphone 0.5 MG/0.5 ML Syringe IVPUSH ONE (01:04)
[2024-12-27] MEDS: Ondansetron 4 MG/2 ML SDV IVPUSH ONE (01:05)
[2024-12-27 01:41] VITALS: BP 148/70; PULSE 97
== END 2024-12-27 02:18 ==
LOC: DL.ED 23:33
DX: K74.60 Unspecified cirrhosis of liver (principal); R18.8 Other ascites; E87.20 Acidosis, unspecified; I10 Essential (primary) hypertension; E78.00 Pure hypercholesterolemia, unspecified; J44.9 Chronic obstructive pulmonary disease, unspecified; E11.9 Type 2 diabetes mellitus without complications; Z87.891 Personal history of nicotine dependence; Z79.82 Long term (current) use of aspirin; Z79.4 Long term (current) use of insulin; Z79.84 Long term (current) use of oral hypoglycemic drugs; Z79.890 Hormone replacement therapy; Z79.899 Other long term (current) drug therapy
CPT/HCPCS: 36415; 74018; 74177; 80053; 80307; 83605; 83735; 85025; 85610; 86140; 96374; 96375; 99285; 99285-25; J2405; Q9967

== ENCOUNTER 2025-03-04 06:16 | Emergency (ER) | payer MEDICARE ==
[2025-03-04 06:12] VITALS: BP 141/70; PULSE 82
== END 2025-03-04 08:09 | disposition home or self-care (01) ==
LOC: DL.ED 06:16
DX: J45.901 Unspecified asthma with (acute) exacerbation (principal); E78.00 Pure hypercholesterolemia, unspecified; I10 Essential (primary) hypertension; E11.9 Type 2 diabetes mellitus without complications; J44.9 Chronic obstructive pulmonary disease, unspecified; Z79.82 Long term (current) use of aspirin; Z79.899 Other long term (current) drug therapy; Z79.4 Long term (current) use of insulin; Z79.84 Long term (current) use of oral hypoglycemic drugs; Z79.890 Hormone replacement therapy
CPT/HCPCS: 71046; 99283; 99285

== ENCOUNTER 2025-03-12 09:58 | Inpatient (IN) | payer MEDICARE ==
[2025-03-12] MEDS ORDERED: Sodium Chloride 0.9% 10 ML Syringe FLUSH PRN (10:24)
[2025-03-12 10:38] LABS: BASOPHILS PERCENT AUTO 0.1 % (0.0-1.0); EOSINOPHILS PERCENT AUTO 0.4 % (1.0-3.0); HEMATOCRIT 40.4 % (40.0-54.0); HEMOGLOBIN 13.9 g/dL (14.0-18.0); LYMPHOCYTES PERCENT AUTO 13.6 % (20.5-50.1); MEAN CORPUSCULAR HEMOGLOBIN 32.6 pg (27.0-34.0); MEAN CORPUSCULAR HGB CONC 34.4 g/dL (33.0-35.0); MEAN CORPUSCULAR VOLUME 94.8 fL (80-100); MONOCYTES PERCENT AUTO 10.4 % (2-8); NEUTROPHILS PERCENT AUTO 75.5 % (42.2-75.2); PLATELET COUNT,PLT 45 10^3/uL (150-450); RED BLOOD CELL COUNT 4.26 10^6/uL (4.6-6.2); WHITE BLOOD CELL COUNT,WBC 6.9 10^3/uL (5.0-10.0)
[2025-03-12 10:39] LABS: APPEARANCE,URINE CLEAR (CLEAR); BILIRUBIN,URINE NEGATIVE (NEGATIVE); COLOR,URINE AMBER (YELLOW); GLUCOSE,URINE NEGATIVE (NEGATIVE); KETONES,URINE NEGATIVE (NEGATIVE); LEUKOCYTE ESTERASE,URINE NEGATIVE (NEGATIVE); NITRITE,URINE NEGATIVE (NEGATIVE); OCCULT BLOOD,URINE NEGATIVE (NEGATIVE); PROTEIN,URINE 30 (NEGATIVE); UROBILINOGEN,URINE 0.2 mg/dL (0.2-1.0)
[2025-03-12 10:45] LABS: ALANINE AMINOTRANSFERASE,ALT 42 U/L (16-63); ALBUMIN 2.9 g/dL (3.4-5.0); ALKALINE PHOSPHATASE 161 U/L (46-116); ANION GAP 17.1 mEq/L (7-13); ASPARTATE AMNIOTRANSFERASE,AST 40 U/L (15-37); BILIRUBIN TOTAL 3.1 mg/dL (0.2-1.0); BLOOD UREA NITROGEN,BUN 19 mg/dL (7-18); BUN/CREATININE RATIO 17.8 (No establ ref range); CARBON DIOXIDE,CO2 20 mmol/L (21-32); CHLORIDE,CL 107 mmol/L (98-107); CREATININE 1.07 mg/dL (0.70-1.30); GLUCOSE RANDOM 163 mg/dL (70-99); MAGNESIUM 1.7 mg/dL (1.8-2.4); POTASSIUM,K 4.1 mmol/L (3.5-5.1); PROTEIN TOTAL,TP 7.9 g/dL (6.4-8.2); SODIUM,NA 140 mmol/L (136-145)
[2025-03-12 10:46] LABS: A/G RATIO 0.58; C-REACTIVE PROTEIN < 0.50 ng/dL (<=0.50); ESTIMATED GFR 78 mL/min (>=60); ETHANOL BLOOD MEDICAL < 3 mg/dL (0)
[2025-03-12 10:48] LABS: HYALINE CASTS,URINE FEW; MUCUS,URINE MANY /LPF (NOT SEEN)
[2025-03-12 10:49] LABS: BACTERIA,URINE FEW /HPF (0-FEW/HPF); RBC,URINE 0-5 /HPF (0-5)
[2025-03-12 10:50] LABS: EPITHELIAL CELLS,URINE NOT SEEN /HPF (NOT SEEN); WBC,URINE 0-5 /HPF (0-5/HPF)
[2025-03-12 10:51] LABS: LACTIC ACID 3.5 mmol/L (0.4-2.0)
[2025-03-12] MEDS: Lactulose Soln 10 GM/15 ML 30 ML UD Cup PO ONE (11:05)
[2025-03-12] MEDS: Sodium Chloride 0.9% 1,000 ML IV ONE (11:05)
[2025-03-12] MEDS ORDERED: Acetaminophen 325 MG Tab PO PRN (11:36)
[2025-03-12] MEDS ORDERED: Naloxone 2 MG/2 ML Syringe IVPUSH PRN (11:36)
[2025-03-12] MEDS ORDERED: Magnesium Hydroxide 400 MG/5 ML Susp 30 ML Cup PO PRN (11:36)
[2025-03-12] MEDS ORDERED: HYDROmorphone 0.5 MG/0.5 ML Syringe IVPUSH PRN (11:36)
[2025-03-12] MEDS ORDERED: Albuterol/Ipratropium 3.0-0.5 MG/3 ML Neb Soln NEB PRN (11:36)
[2025-03-12] MEDS ORDERED: Ondansetron 4 MG/2 ML SDV IVPUSH PRN (11:36)
[2025-03-12] MEDS ORDERED: Polyethylene Glycol 3350 Powder 17 GM Packet PO PRN (11:36)
[2025-03-12] MEDS ORDERED: Sennosides/Docusate Sodium 50-8.6 MG Tab PO PRN (11:36)
[2025-03-12] MEDS ORDERED: traMADol 50 MG Tab PO PRN (11:38)
[2025-03-12] MEDS ORDERED: Ketorolac 30 MG/ML SDV IVPUSH PRN (11:38)
[2025-03-12] MEDS ORDERED: Thiamine 100 MG in Sodium Chloride 0.9% 100 ML IV ONE (11:41)
[2025-03-12] MEDS ORDERED: hydrALAZINE 20 MG/ML SDV IVPUSH PRN (11:43)
[2025-03-12] MEDS ORDERED: Metoprolol Tartrate 5 MG/5 ML SDV IVPUSH PRN (11:43)
[2025-03-12 12:07] LABS: AMPHETAMINES,URINE NEGATIVE (NEGATIVE); BARBITURATES,URINE NEGATIVE (NEGATIVE); BENZODIAZEPINE,URINE NEGATIVE (NEGATIVE); MDMA (ECSTASY), URINE NEGATIVE (NEGATIVE); METHADONE,URINE NEGATIVE (NEGATIVE); METHAMPHETAMINES,URINE NEGATIVE (NEGATIVE); OPIATES,URINE NEGATIVE (NEGATIVE); OXYCODONE,URINE NEGATIVE (NEGATIVE); PHENCYCLIDINE,URINE NEGATIVE (NEGATIVE); TCA,URINE NEGATIVE (NEGATIVE)
[2025-03-12] MEDS: Ziprasidone Mesylate 20 MG Vial IM PRN (13:25)
[2025-03-12] MEDS: MVI, Adult with Vitamin K 10 ML, Folic Acid 1 MG, Thiamine 100 MG in Lactated Ringers 1... IV ONE (17:56)
[2025-03-12] MEDS: Pantoprazole 40 MG Tab.CR PO SCH (17:56)
[2025-03-12] MEDS: Lactulose Soln 10 GM/15 ML 30 ML UD Cup PO SCH (18:40)
[2025-03-12] MEDS: Thiamine 100 MG in Sodium Chloride 0.9% 100 ML IV ONE (18:41)
[2025-03-12] MEDS: Temazepam 15 MG Cap PO PRN (21:24)
[2025-03-12] MEDS: Rifaximin 550 MG Tab PO SCH (21:24)
[2025-03-13] MEDS: LORazepam 2 MG/ML SDV IVPUSH ONE (01:37)
[2025-03-13 06:38] LABS: BASOPHILS PERCENT AUTO 0.4 % (0.0-1.0); HEMATOCRIT 33.2 % (40.0-54.0); HEMOGLOBIN 11.5 g/dL (14.0-18.0); LYMPHOCYTES PERCENT AUTO 30.9 % (20.5-50.1); MEAN CORPUSCULAR HEMOGLOBIN 33.6 pg (27.0-34.0); MEAN CORPUSCULAR HGB CONC 34.6 g/dL (33.0-35.0); MEAN CORPUSCULAR VOLUME 97.1 fL (80-100); MONOCYTES PERCENT AUTO 15.7 % (2-8); PLATELET COUNT,PLT 41 10^3/uL (150-450); RED BLOOD CELL COUNT 3.42 10^6/uL (4.6-6.2)
[2025-03-13 07:00] LABS: ALBUMIN 2.2 g/dL (3.4-5.0); ANION GAP 12.2 mEq/L (7-13); BILIRUBIN TOTAL 2.8 mg/dL (0.2-1.0); BUN/CREATININE RATIO 18.4 (No establ ref range); CALCIUM 8.5 mg/dL (8.5-10.1); CREATININE 0.98 mg/dL (0.70-1.30); EST CRCL DRUG DOSING (CG) 75.61 mL/min; MAGNESIUM 1.6 mg/dL (1.8-2.4); POTASSIUM,K 4.2 mmol/L (3.5-5.1); PROTEIN TOTAL,TP 6.1 g/dL (6.4-8.2)
[2025-03-13 07:05] LABS: A/G RATIO 0.56
[2025-03-13] MEDS: Magnesium Sulf/Wat 2 GM/50 mL 2 GM in Premix Bag 1 BAG IV ONE (11:19)
[2025-03-13] MEDS: Multivitamins with Iron/Calcium/Folic Acid/Minerals Tab PO SCH (22:00)
[2025-03-13] MEDS: Thiamine 100 MG Tab PO SCH (22:00)
[2025-03-13] MEDS: Folic Acid 1 MG Tab PO SCH (22:02)
[2025-03-14 06:28] LABS: BASOPHILS PERCENT AUTO 0.4 % (0.0-1.0); EOSINOPHILS PERCENT AUTO 3.8 % (1.0-3.0); HEMATOCRIT 33.7 % (40.0-54.0); HEMOGLOBIN 11.4 g/dL (14.0-18.0); LYMPHOCYTES PERCENT AUTO 27.4 % (20.5-50.1); MEAN CORPUSCULAR HEMOGLOBIN 32.7 pg (27.0-34.0); MEAN CORPUSCULAR HGB CONC 33.8 g/dL (33.0-35.0); MEAN CORPUSCULAR VOLUME 96.6 fL (80-100); MONOCYTES PERCENT AUTO 15.7 % (2-8); NEUTROPHILS PERCENT AUTO 52.7 % (42.2-75.2); PLATELET COUNT,PLT 44 10^3/uL (150-450); RED BLOOD CELL COUNT 3.49 10^6/uL (4.6-6.2); WHITE BLOOD CELL COUNT,WBC 5.5 10^3/uL (5.0-10.0)
[2025-03-14 06:48] LABS: ALBUMIN 2.3 g/dL (3.4-5.0); ANION GAP 13.2 mEq/L (7-13); BILIRUBIN TOTAL 2.3 mg/dL (0.2-1.0); BUN/CREATININE RATIO 19.6 (No establ ref range); CALCIUM 8.2 mg/dL (8.5-10.1); CREATININE 0.92 mg/dL (0.70-1.30); EST CRCL DRUG DOSING (CG) 80.54 mL/min; MAGNESIUM 1.8 mg/dL (1.8-2.4); POTASSIUM,K 4.2 mmol/L (3.5-5.1); PROTEIN TOTAL,TP 6.2 g/dL (6.4-8.2)
[2025-03-14 06:56] LABS: A/G RATIO 0.59
[2025-03-14 09:58] VITALS: BP 140/65; PULSE 84
== END 2025-03-14 11:15 | disposition home or self-care (01) | DRG 433 ==
LOC: DL.ED 09:58 → DL.MS 11:01 → DL.ED 11:15
PROVIDERS: ADMIT Internal Medicine; ATTEND Internal Medicine
DX: K70.30 Alcoholic cirrhosis of liver without ascites (principal); E44.0 Moderate protein-calorie malnutrition; E72.20 Disorder of urea cycle metabolism, unspecified; E87.20 Acidosis, unspecified; K76.82 Hepatic encephalopathy; H54.7 Unspecified visual loss; I10 Essential (primary) hypertension; E11.9 Type 2 diabetes mellitus without complications; J44.9 Chronic obstructive pulmonary disease, unspecified; J30.2 Other seasonal allergic rhinitis; F15.10 Other stimulant abuse, uncomplicated; F41.9 Anxiety disorder, unspecified; E78.00 Pure hypercholesterolemia, unspecified; D64.9 Anemia, unspecified; F10.10 Alcohol abuse, uncomplicated; D69.6 Thrombocytopenia, unspecified; E83.42 Hypomagnesemia; E80.6 Other disorders of bilirubin metabolism; Z68.24 Body mass index [BMI] 24.0-24.9, adult; Z79.82 Long term (current) use of aspirin; Z79.4 Long term (current) use of insulin; Z79.899 Other long term (current) drug therapy; Z79.02 Long term (current) use of antithrombotics/antiplatelets; Z79.84 Long term (current) use of oral hypoglycemic drugs; Z91.199 Patient's noncompliance with other medical treatment and regimen due to unspecified reason
CPT/HCPCS: 36415; 51701; 80053; 80305-QW; 80307; 81001; 82140; 82550; 83605; 83735; 85025; 86140; 87040; 99285; A9270-GY; C1758; J3411; J3475; J3486; J3490; J7030; J7120

== ENCOUNTER 2025-04-04 16:28 | Emergency (ER) | payer MEDICARE ==
[2025-04-04] MEDS: Ondansetron 4 MG/2 ML SDV IVPUSH ONE (16:50)
[2025-04-04] MEDS: Ketorolac 30 MG/ML SDV IVPUSH ONE (16:52)
[2025-04-04] MEDS: HYDROmorphone 0.5 MG/0.5 ML Syringe IVPUSH ONE (16:56)
[2025-04-04 16:58] LABS: BASOPHILS PERCENT AUTO 0.2 % (0.0-1.0); EOSINOPHILS PERCENT AUTO 4.4 % (1.0-3.0); HEMATOCRIT 39.2 % (40.0-54.0); HEMOGLOBIN 12.5 g/dL (14.0-18.0); LYMPHOCYTES PERCENT AUTO 30.2 % (20.5-50.1); MEAN CORPUSCULAR HGB CONC 31.9 g/dL (33.0-35.0); MEAN CORPUSCULAR VOLUME 100.3 fL (80-100); MONOCYTES PERCENT AUTO 5.2 % (2-8); PLATELET COUNT,PLT 76 10^3/uL (150-450); RED BLOOD CELL COUNT 3.91 10^6/uL (4.6-6.2); WHITE BLOOD CELL COUNT,WBC 5.2 10^3/uL (5.0-10.0)
[2025-04-04] MEDS: Sodium Chloride 0.9% 1,000 ML IV ONE (16:58)
[2025-04-04 17:20] LABS: A/G RATIO 0.59; ALBUMIN 2.7 g/dL (3.4-5.0); ANION GAP 12.5 mEq/L (7-13); BILIRUBIN TOTAL 1.8 mg/dL (0.2-1.0); BUN/CREATININE RATIO 18.3 (No establ ref range); CALCIUM 8.8 mg/dL (8.5-10.1); CREATININE 1.04 mg/dL (0.70-1.30); EST CRCL DRUG DOSING (CG) 71.25 mL/min; MAGNESIUM 1.7 mg/dL (1.8-2.4); POTASSIUM,K 4.5 mmol/L (3.5-5.1); PROTEIN TOTAL,TP 7.3 g/dL (6.4-8.2)
[2025-04-04] MEDS: Iopamidol 755 Mg/ML 100 ML Bottle IVPUSH ONE (17:23)
[2025-04-04 19:36] LABS: APPEARANCE,URINE CLEAR (CLEAR); BILIRUBIN,URINE NEGATIVE (NEGATIVE); COLOR,URINE DARK YELLOW (YELLOW); GLUCOSE,URINE NEGATIVE (NEGATIVE); KETONES,URINE NEGATIVE (NEGATIVE); LEUKOCYTE ESTERASE,URINE NEGATIVE (NEGATIVE); NITRITE,URINE NEGATIVE (NEGATIVE); OCCULT BLOOD,URINE NEGATIVE (NEGATIVE); PH,URINE 5.5 (5.0-9.0); PROTEIN,URINE NEGATIVE (NEGATIVE); UROBILINOGEN,URINE 0.2 mg/dL (0.2-1.0)
[2025-04-04] MEDS: Ibuprofen 600 MG Tab PO ONE (20:11)
[2025-04-04 21:03] VITALS: BP 107/46; PULSE 106
== END 2025-04-04 21:03 | disposition home or self-care (01) ==
LOC: DL.ED 16:28
DX: K70.31 Alcoholic cirrhosis of liver with ascites (principal); R16.0 Hepatomegaly, not elsewhere classified; I10 Essential (primary) hypertension; E78.00 Pure hypercholesterolemia, unspecified; J44.9 Chronic obstructive pulmonary disease, unspecified; E11.9 Type 2 diabetes mellitus without complications; Z79.82 Long term (current) use of aspirin; Z79.02 Long term (current) use of antithrombotics/antiplatelets; Z79.4 Long term (current) use of insulin; Z79.84 Long term (current) use of oral hypoglycemic drugs
CPT/HCPCS: 36415; 71046; 74177; 80053; 81003; 83605; 83735; 85025; 87040; 87077; 87186; 87428; 96374; 96375; 99284; A9270; J1885; J2405; J7030; Q9967

== ENCOUNTER 2025-04-22 07:27 | Inpatient (IN) | payer MEDICARE ==
[2025-04-22] MEDS ORDERED: hydrOXYzine HCl 25 MG Tab PO PRN (15:31)
[2025-04-22] MEDS ORDERED: Albuterol/Ipratropium 3.0-0.5 MG/3 ML Neb Soln INH PRN (15:31)
[2025-04-22] MEDS ORDERED: Albuterol 0.021% 0.63 MG/3 ML Neb Soln INH PRN (15:31)
[2025-04-22 15:59] LABS: HEMATOCRIT 29.1 % (40.0-54.0); HEMOGLOBIN 9.9 g/dL (14.0-18.0); MEAN CORPUSCULAR VOLUME 102.8 fL (80-100); PLATELET COUNT,PLT 60 10^3/uL (150-450); RED BLOOD CELL COUNT 2.83 10^6/uL (4.6-6.2); WHITE BLOOD CELL COUNT,WBC 6.7 10^3/uL (5.0-10.0)
[2025-04-22 16:01] LABS: BASOPHILS PERCENT AUTO 1.2 % (0.0-1.0); EOSINOPHILS PERCENT AUTO 2.8 % (1.0-3.0); LYMPHOCYTES PERCENT AUTO 9.4 % (20.5-50.1); MONOCYTES PERCENT AUTO 14.6 % (2-8)
[2025-04-22 16:14] LABS: INR 1.4 (0.9-1.2); PROTHROMBIN TIME 14.5 SEC (9.0-12.0)
[2025-04-22 16:31] LABS: EOSINOPHILS PERCENT MAN 1 % (1-3); LYMPHOCYTES PERCENT MAN 9 % (20-50); MONOCYTES PERCENT MAN 10 % (2-8); SEG NEUTROPHILS PERCENT MAN 80 % (42-75)
[2025-04-22 16:37] LABS: ALBUMIN 1.7 g/dL (3.4-5.0); ANION GAP 12.4 mEq/L (7-13); CALCIUM 7.7 mg/dL (8.5-10.1); CREATININE 1.09 mg/dL (0.70-1.30); EST CRCL DRUG DOSING (CG) 67.98 mL/min; MAGNESIUM 1.6 mg/dL (1.8-2.4); PHOSPHORUS 2.2 mg/dL (2.6-4.7); POTASSIUM,K 3.4 mmol/L (3.5-5.1); PROTEIN TOTAL,TP 5.4 g/dL (6.4-8.2)
[2025-04-22 16:38] LABS: A/G RATIO 0.46; BILIRUBIN DIRECT 22.1 mg/dL (0.0-0.2); BILIRUBIN INDIRECT 9.4; BILIRUBIN TOTAL 31.5 mg/dL (0.2-1.0)
[2025-04-22 16:46] LABS: PERCENT FE SATURATION 37.5 % (20.0-50.0)
[2025-04-22 16:47] LABS: HEMOGLOBIN A1C 5.2 % (<5.7)
[2025-04-22 16:57] LABS: TSH ULTRASENSITIVE 4.63 uIU/mL (0.36-3.74)
[2025-04-22] MEDS: Piperacillin/Tazobactam 4.5 GM in Sodium Chloride 0.9% 100 ML IV ONE (17:02)
[2025-04-22] MEDS: Midodrine 5 MG Tab PO SCH (17:03)
[2025-04-22] MEDS: MICAFUNGIN 100 MG SCH (17:52)
[2025-04-22] MEDS ORDERED: Glucagon,Human Recombinant 1 MG Vial IM PRN (18:43)
[2025-04-22] MEDS ORDERED: 50% Dextrose in Water 50 ML Syringe IVPUSH PRN (18:43)
[2025-04-22] MEDS: Insulin Lispro Protamine/Lispro 75-25 100 Units/ML 10 ML Vial SUBCUT SCH (20:00)
[2025-04-22] MEDS: Gabapentin 300 MG Cap PO SCH (20:11)
[2025-04-22] MEDS: Rifaximin 550 MG Tab PO SCH (20:11)
[2025-04-22] MEDS: Magnesium Oxide 400 MG Tab PO SCH (20:12)
[2025-04-22] MEDS: Calcium Carbonate/Vitamin D3 1250 MG-5 MCG Tab PO SCH (20:12)
[2025-04-22] MEDS: Lactulose Soln 10 GM/15 ML 30 ML UD Cup PO SCH (20:13)
[2025-04-22] MEDS: Piperacillin/Tazobactam 4.5 GM in Sodium Chloride 0.9% 100 ML IV SCH (21:11)
[2025-04-22] MEDS ORDERED: Heparin Sodium 5,000 Units/ML Vial SUBCUT SCH (22:00)
[2025-04-23] MEDS: Tiotropium Bromide 4 GM Inhalation Spray (2.5mcg/1 dose; 10 doses) INH SCH (06:00)
[2025-04-23] MEDS: Folic Acid 1 MG Tab PO SCH (08:49)
[2025-04-23] MEDS: Ferrous Sulfate 325 MG Tab PO SCH (08:49)
[2025-04-23] MEDS: Potassium Chloride 10 MEQ Tab.ER PO SCH ×2 (08:50→17:03)
[2025-04-23] MEDS: Furosemide 20 MG Tab PO SCH (08:51)
[2025-04-23] MEDS: Ascorbic Acid 500 MG Tab PO SCH (08:53)
[2025-04-23] MEDS: Thiamine 100 MG Tab PO SCH (08:53)
[2025-04-23] MEDS: Pantoprazole 40 MG Tab.CR PO SCH (08:53)
[2025-04-23] MEDS: Phosphorus #1 250 MG Tab PO SCH (10:11)
[2025-04-23] MEDS: Magnesium Sulfate 2 GM/50 mL 2 GM in Premix Bag 1 BAG IV ONE (10:16)
[2025-04-23] MEDS: Potassium Chloride 20 MEQ in Premix Bag 1 BAG IV ONE (10:19)
[2025-04-23 10:34] LABS: FOLIC ACID 19.3 ng/mL (8.6-58.9)
[2025-04-23] MEDS: Calcium Gluconate 1 GM in Sodium Chloride 0.9% 100 ML IV SCH (15:43)
[2025-04-23] MEDS ORDERED: Micafungin 100 MG in Sodium Chloride 0.9% 100 ML IV SCH (16:30)
[2025-04-23] MEDS: Magnesium Oxide 400 MG Tab PO SCH (17:03)
[2025-04-23] MEDS: Micafungin 100 MG in Sodium Chloride 0.9% 100 ML IV SCH (18:17)
[2025-04-23] MEDS: Ondansetron 4 MG/2 ML SDV IVPUSH ONE (22:40)
[2025-04-24 07:52] LABS: HEMOGLOBIN 10.5 g/dL (14.0-18.0); MEAN CORPUSCULAR HEMOGLOBIN 34.9 pg (27.0-34.0); MEAN CORPUSCULAR HGB CONC 33.9 g/dL (33.0-35.0); PLATELET COUNT,PLT 55 10^3/uL (150-450); RED BLOOD CELL COUNT 3.01 10^6/uL (4.6-6.2); WHITE BLOOD CELL COUNT,WBC 6.9 10^3/uL (5.0-10.0)
[2025-04-24 07:54] LABS: BASOPHILS PERCENT AUTO 1.2 % (0.0-1.0); EOSINOPHILS PERCENT AUTO 2.9 % (1.0-3.0); LYMPHOCYTES PERCENT AUTO 14.3 % (20.5-50.1); MONOCYTES PERCENT AUTO 13.6 % (2-8)
[2025-04-24 08:15] LABS: ANION GAP 14.7 mEq/L (7-13); CALCIUM 7.9 mg/dL (8.5-10.1); CREATININE 0.98 mg/dL (0.70-1.30); EST CRCL DRUG DOSING (CG) 75.61 mL/min; POTASSIUM,K 2.7 mmol/L (3.5-5.1)
[2025-04-24 09:15] LABS: BASOPHILS PERCENT MAN 2; EOSINOPHILS PERCENT MAN 3 % (1-3); LYMPHOCYTES PERCENT MAN 16 % (20-50); MONOCYTES PERCENT MAN 8 % (2-8); SEG NEUTROPHILS PERCENT MAN 71 % (42-75)
[2025-04-24] MEDS: Calcium Gluconate 1 GM in Sodium Chloride 0.9% 100 ML IV ONE (13:26)
[2025-04-24] MEDS: Magnesium Sulfate 2 GM/50 mL 2 GM in Premix Bag 1 BAG IV ONE (14:41)
[2025-04-24] MEDS: Potassium Chloride 20 MEQ in Premix Bag 1 BAG IV ONE (14:44)
[2025-04-25 11:42] LABS: IONIZED CA@PH7.4 1.15 mmol/L (1.09-1.30); IONIZED CALCIUM 1.13 mmol/L (1.09-1.30)
[2025-04-25] MEDS: Micafungin 100 MG in Sodium Chloride 0.9% 100 ML IV SCH (12:06)
[2025-04-25 13:26] VITALS: BP 127/57; PULSE 74
== END 2025-04-25 13:10 | disposition home or self-care (01) | DRG 948 ==
LOC: DL.MS 12:04
PROVIDERS: ADMIT Internal Medicine; ATTEND Internal Medicine
DX: R53.81 Other malaise (principal); E46 Unspecified protein-calorie malnutrition; K76.6 Portal hypertension; H91.90 Unspecified hearing loss, unspecified ear; H54.7 Unspecified visual loss; J44.9 Chronic obstructive pulmonary disease, unspecified; E78.00 Pure hypercholesterolemia, unspecified; I10 Essential (primary) hypertension; F41.9 Anxiety disorder, unspecified; E11.9 Type 2 diabetes mellitus without complications; E66.9 Obesity, unspecified; D69.6 Thrombocytopenia, unspecified; E88.09 Other disorders of plasma-protein metabolism, not elsewhere classified; E87.6 Hypokalemia; E83.42 Hypomagnesemia; E83.39 Other disorders of phosphorus metabolism; E83.51 Hypocalcemia; K72.90 Hepatic failure, unspecified without coma; R53.1 Weakness; Z97.8 Presence of other specified devices; Z79.899 Other long term (current) drug therapy; Z79.51 Long term (current) use of inhaled steroids; I25.2 Old myocardial infarction; Z68.27 Body mass index [BMI] 27.0-27.9, adult; Z86.16 Personal history of COVID-19; Z87.891 Personal history of nicotine dependence
CPT/HCPCS: 36415; 71045; 80048; 80076; 82140; 82272; 82330; 82607; 82746; 82947; 83036; 83540; 83550; 83735; 84100; 84439; 84443; 85025; 85049; 85610; 97110-GP; 97161-GP; 97165-GO; 97530-GO; 99211; 99306; 99316; A9270-GY; J0612; J1815-GY; J2248; J2405; J2543; J3475; J3480

== ENCOUNTER 2025-04-29 17:01 | Emergency (ER) | payer MEDICARE ==
[2025-04-29] MEDS: Potassium Chloride 20 MEQ in Premix Bag 1 BAG IV ONE (17:41)
[2025-04-29] MEDS: Potassium Chloride 10 MEQ Tab.ER PO ONE (17:41)
[2025-04-29 21:20] VITALS: BP 99/31; PULSE 102
== END 2025-04-29 21:20 | disposition home or self-care (01) ==
LOC: DL.ED 17:01
DX: E87.6 Hypokalemia (principal); E78.00 Pure hypercholesterolemia, unspecified; I10 Essential (primary) hypertension; I25.2 Old myocardial infarction; J44.89 Other specified chronic obstructive pulmonary disease; E11.9 Type 2 diabetes mellitus without complications; Z86.16 Personal history of COVID-19; Z79.899 Other long term (current) drug therapy; Z79.51 Long term (current) use of inhaled steroids
CPT/HCPCS: 96374; 99283; 99284-25; A9270-GY; J2248; J3480